=== PATIENT | male | born 1940 | race Caucasian/White ===

== ENCOUNTER → 2018-03-05 11:43 | Outpatient (CLI) | payer MEDICARE, OTHER, SELFPAY ==
--- NOTE | 2018-03-05 | DI.CT.S_ITS ---
PROCEDURE: CT CERVICAL SPINE WO CON INDICATIONS: CERVICAL SPINE PAIN TECHNIQUE: Noncontrast 3 mm thick sections acquired from the skull base to the T4 level. Sagittal and coronal reformats were then constructed. For radiation dose reduction, the following was used: automated exposure control, adjustment of mA and/or kV according to patient size. COMPARISON: [facility] [place], CR, SPINE CERVICAL MIN 4VW, 12/25/2016, 9:51. [facility], CR, XR CERVICAL SPINE 2 OR 3 VIEWS, 03/03/2018, 9:21. [facility], CR, CHEST 1 VIEW, 10/23/2016, 12:14. FINDINGS: Image quality: Excellent. Bones: No fractures or dislocations. There is severe degenerative disc disease involving the cervical spine from C3-C7, with both anterior and posterior projecting osteophytes narrowing the spinal canal posteriorly, but without associated subluxation. 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 Visualized superior ribs are intact. Soft tissues: Prevertebral soft tissues are normal in thickness. No paravertebral hematomas. No apical pneumothoraces. IMPRESSION: The degenerative disc disease and facet osteoarthritis along the cervicals line is moderately severe to severe, and most pronounced from C3-4 through C6-7. Spinal and foraminal stenosis appears present and could be more accurately assessed if some form of intervention is anticipated by MR scanning without contrast. Dictated by: Peter Abernathy M.D. on 03/05/2018 at 18:01 Approved by: Peter Abernathy M.D. on 03/05/2018 at 18:03
== END ==
PROVIDERS: Family Provider Internal Medicine; PCP Internal Medicine; Visit Provider Orthopaedic Surgery
DX: M50.30 Other cervical disc degeneration, unspecified cervical region (principal); M47.812 Spondylosis without myelopathy or radiculopathy, cervical region; M99.71 Connective tissue and disc stenosis of intervertebral foramina of cervical region
CPT/HCPCS: 72125

== ENCOUNTER → 2018-06-23 15:05 | Outpatient (CLI) | payer MEDICARE, OTHER, SELFPAY ==
--- NOTE | 2018-06-23 | DI.US.S_ITS ---
PROCEDURE: US SCROTUM INDICATIONS: EPIDIDIMAL MASS TECHNIQUE: Real-time scanning was performed of the scrotum and testicles, with image documentation. Color and pulse Doppler interrogation was performed of both testicles. COMPARISON: None. FINDINGS: Right: Testicle is normal in size at 3.9 x 2.1 x 2.5 cm. 7 x 4 x 6 mm cyst is seen in right tunica. Prominent right rete testes is seen. There is subtle hypoechoic area within right testes and measures 3 x 2 x 3 mm in size. No internal vascularity is seen. Epididymis is normal in overall size and show normal internal vascularity. 6 x 6 x 7 mm echogenic structure is noted in tail of right epididymis with no internal vascularity. Moderate right-sided hydrocele is seen. No varicoceles. Overlying scrotal skin is normal in thickness. Left: Testicle is normal in size at 4.3 x 2.2 x 2.8 cm, and homogeneous in echotexture. Epididymis is normal in overall size and morphology. No hydrocele or varicoceles. Overlying scrotal skin is normal in thickness. Doppler: Color and pulse Doppler demonstrate normal and symmetric arterial flow in both testicles. IMPRESSION: 1. 3 x 2 x 3 mm hypoechoic intratesticular lesion in right testes with no internal vascularity. Sonographic followup is recommended. 2. 7 x 4 x 6 mm right tunica cyst. Prominent right rete testes. 3. Moderate amount of right hydrocele. 6 x 6 x 7 mm echogenic and solid-appearing lesion involving tail of right epididymis, which can also be followup with scrotal ultrasound. 4. Normal appearing left testes and left epididymis. Dictated by: Guillermo Zapata M.D. on 06/23/2018 at 16:16 Approved by: Guillermo Zapata M.D. on 06/23/2018 at 16:21
== END ==
PROVIDERS: Family Provider Internal Medicine; PCP Internal Medicine
DX: N50.9 Disorder of male genital organs, unspecified (principal); N44.1 Cyst of tunica albuginea testis; N43.3 Hydrocele, unspecified
CPT/HCPCS: 76870

== ENCOUNTER 2018-12-17 10:03 | Day surgery (SDC) | payer MEDICARE, OTHER, SELFPAY ==
--- NOTE | 2018-12-17 | PATH_ITS ---
[facility] Accession Number: [id number] . 01 Material submitted: . PART A: GASTRIC POLYP BIOPSY PART B: GE JUNCTION BIOPSY . 02 Diagnosis: A. Biopsy, Gastric Polyp: Benign fundic gland polyp, negative for atypia. . B. Biopsy, Gastroesophageal Junction: Squamocolumnar junctional mucosa, negative for specialized metaplasia of Lei's type esophagus. Chronic inflammation with reactive epithelial changes, but negative for dysplasia and malignancy. Negative for squamous intraepithelial eosinophils. [facility]/12/18/2018 . 02 Electronically signed: . Juarez Garland MD, Pathologist NPI- [id number] . 01 Gross description: . Received two formalin-filled containers both labeled with the patient's name. . A. In a container labeled gastric polyp,' the specimen consists of a 0.3 cm portion of tissue. Entirely submitted in cassette A. B. In a container labeled GE junction are two 0.2 to 0.3 cm portions of tissue. Entirely submitted in cassette B. ([facility]:[id number]) /[facility] . 02 Pathologist provided ICD-10: K31.7 . 02 CPT . 889445, 721037 Performed at: 01 [facility] [address], [place], [place] [id number] MD Pablito Malhotra MD Phone: [phone] Performed at: 02 [facility] [address] [place], [place] [id number] MD Vivian Cano MD Phone: [phone]
[2018-12-17 10:13] VITALS: BP 145/82; PULSE 67; RESP 16; TEMP 36.9; O2SAT 99; BMI 25.4
--- NOTE | 2018-12-17 10:30 | PM.HP.1 ---
History of Present Illness Date Patient Seen: 12/17/18 Chief complaint: [id number] Narrative: 78-year-old male who was seen in our office on November 18, [address] Perez for abnormal findings on a CT scan performed in September of 2018. Please refer to that office note for further details. The patient had esophageal thickening and was given a month's course of pantoprazole. He currently denies any dysphagia. Patient History Medical History Asthma (Acute) Atrial fibrillation (Acute) Chronic cough (Acute) Hypertension (Acute) Surgical History History of appendectomy (Acute) History of cataract surgery (Acute) History of colonoscopy (Acute) History of hemorrhoidectomy (Acute) History of partial knee replacement (Acute) History of tonsillectomy (Acute) Social History household members: spouse Family & Social History Social History: household members spouse Meds Home Medications Medication Instructions Recorded Confirmed Type ASPIRIN (Aspir-Low) 81 mg PO Q DAY #0 07/31/11 12/17/18 History Metoprolol Succinate (#TOPROL XL) 50 mg PO Q DAY #0 07/31/11 History MULTIVITAMIN (One Daily 1 tab PO QDAY #0 08/01/11 History Multivitamin) [Vitamin C] 1,000 mg PO BID #0 08/01/11 12/17/18 History [Vitamin D] 1,000 mg PO BID #0 03/21/13 12/17/18 History amlodipine [Norvasc] 10 mg PO QDAY #0 03/21/13 12/17/18 History fexofenadine 180 mg PO DAILY #0 03/21/13 12/17/18 History lorazepam [Ativan] 0.5 mg PO HSP PRN #0 03/21/13 History amoxicillin 2,000 mg PO PRN 12/16/18 History lisinopril 40 mg PO DAILY 12/16/18 12/17/18 History Qvar RediHaler 1 puff INHALATION DAILY PRN 12/17/18 12/17/18 History hydroxyzine HCl 25 mg PO DAILY 12/17/18 12/17/18 History melatonin 5 mg PO BEDTIME PRN 12/17/18 12/17/18 History multivitamin 1 tab PO DAILY 12/17/18 12/17/18 History Allergies Allergy/AdvReac Type Severity Reaction Status Date / Time formoterol [FORMOTEROL] Allergy Intermediate patient Unverified 01/22/18 12:13 states it gave him a-fib Kmafqli-Unl-Vpa Reductase Allergy Unknown Verified 12/16/18 14:28 Inhibitor budesonide [BUDESONIDE] AdvReac Intermediate patient Unverified 01/22/18 12:13 states it gave him a-fib Exam Vital Signs (past 8 hours): - 12/17/18 10:13 Temperature 98.4 F Pulse Rate 67 Respiratory Rate 16 Blood Pressure 145/82 H Pulse Oximetry 99 Oxygen Delivery Method Room Air Narrative Exam Narrative: General: Patient is well developed, not in apparent distress Cardiovascular: Regular rate and rhythm, no murmurs, rubs, or gallops; no evidence of edema; no palpable abdominal aortic aneurysm Gastrointestinal: Normoactive bowel sounds, soft, nontender, nondistended, no rebound tenderness, no hepatosplenomegaly, no evidence of hernia Assessment & Plan Assessment & Plan narrative: 78-year-old male with findings of esophageal thickening on the CT scan performed in September 2018 who is here for an upper endoscopy for further evaluation. Regarding the procedure(s), the risks and potential complications, benefits, and alternatives (including not doing the procedure) were discussed with the patient. The risks include but are not limited to bleeding, splenic injury, infection, perforation which may require surgical intervention, missed lesions, and adverse reactions to sedative medicines. After a question and answer period, the patient agreed to proceed with the procedure(s) and gives informed consent.
--- NOTE | 2018-12-17 10:32 | PM.OP.ENDO ---
Operative Date/Time/Diagnoses Date of procedure: 12/17/18 Procedure Notes Procedure in detail: Surgeon: Jai Villegas MD Procedure: Esophagogastroduodenoscopy with biopsy Preoperative diagnosis: Esophageal thickening on CT Postoperative diagnosis: Gastric polyps status post wireless sales representative biopsy, LA grade C reflux esophagitis status post biopsy, small hiatal hernia Medications: Conscious sedation using 5 mg IV of Midazolam and 100 mcg IV of Fentanyl Preanesthesia Assessment An H and P was performed/updated and the Px?s ASA class is 2. The procedure was discussed in detail with the patient. The potential risks and complications including infection, bleeding, missed lesions, perforation, need for surgery in case of perforation, prolonged hospital stay, and were explained. A brief question and answer period was allotted and once all questions were answered, informed consent was obtained. The patient was brought back to the procedure room and placed on standard monitoring. The patient?s vital signs were monitored continuously throughout the entire procedure. Prior to starting, a timeout was performed to confirm the patient?s identity, allergies, medications, and procedure. Procedure in detail The patient was placed in left lateral decubitus position and a bite block was inserted. The tip of the upper endoscope was placed into the mouth and advanced without difficulty under direct visualization into the esophagus. Esophagus: There is evidence of LA grade C esophagitis in the distal 3rd of the esophagus likely due to reflux. Biopsies were taken. Stomach: There is note of a small hiatal hernia. There is note of multiple sessile and semi pedunculated polyps measuring 4-8 mm. Falsework Builder biopsies were taken from the largest polyp. Duodenum: The visualized mucosa was normal up to the 2nd portion The patient tolerated the procedure well and will be brought back to the recovery area to be discharged once criteria are met. The total physician intraservice time was 10 min. Complications There were no complications and estimated blood loss was minimal. Recommendations: Resume previous diet Continue outPx medications Use omeprazole 20 mg twice daily, 30 min prior to breakfast and 30 min prior to dinner (prescription sent to [facility] in [place]) Follow up pathology results Repeat EGD in 12 weeks to assess healing of the inflammation Office follow up if you have persistent symptoms of reflux An emergency contact number was given to the patient for any complications related to the procedure
[2018-12-17] MEDS: MIDAZOLAM 5 MG/5 ML VIAL IV (10:44)
[2018-12-17] MEDS: fentaNYL 250 MCG/5 ML INJ IV (10:45)
[2018-12-17 10:46] VITALS: BP 112/62; PULSE 61; RESP 18; O2SAT 95
--- NOTE | 2018-12-17 10:49 | PM.DS.1 ---
History of Present Illness Chief complaint: [id number] Narrative: 78-year-old male who was seen in our office on November 18, [address] Perez for abnormal findings on a CT scan performed in September of 2018. Please refer to that office note for further details. The patient had esophageal thickening and was given a month's course of pantoprazole. He currently denies any dysphagia. Discharge Providers Discharge Date: 12/17/18 Primary care physician: Dandy Palumbo MD Discharge provider: Jai Villegas MD Exam Vital Signs (past 8 hours): - 12/17/18 10:13 Temperature 98.4 F Pulse Rate 67 Respiratory Rate 16 Blood Pressure 145/82 H Pulse Oximetry 99 Oxygen Delivery Method Room Air Narrative Exam Narrative: General: Patient is well developed, not in apparent distress Cardiovascular: Regular rate and rhythm, no murmurs, rubs, or gallops; no evidence of edema; no palpable abdominal aortic aneurysm Gastrointestinal: Normoactive bowel sounds, soft, nontender, nondistended, no rebound tenderness, no hepatosplenomegaly, no evidence of hernia Discharge Plan Discharge Plan Patient Disposition: Home Discharge Med Rec/Prescriptions Prescriptions: Continued ASPIRIN (Aspir-Low) 81 mg PO Q DAY Qty: 0 RF: 0 Metoprolol Succinate (#TOPROL XL) 50 mg PO Q DAY Qty: 0 RF: 0 [Vitamin C] 1,000 mg PO BID Qty: 0 RF: 0 MULTIVITAMIN (One Daily Multivitamin) 1 tab PO QDAY Qty: 0 RF: 0 [Vitamin D] 1,000 mg PO BID Qty: 0 RF: 0 fexofenadine 180 MG tablet 180 mg PO DAILY Qty: 0 RF: 0 amlodipine [Norvasc] 5 MG tablet 10 mg PO QDAY Qty: 0 RF: 0 lorazepam [Ativan] 0.5 MG tablet 0.5 mg PO HSP PRN (Reason: Insomnia) Qty: 0 RF: 0 amoxicillin 2,000 mg PO PRN (Reason: Dental Procedure) RF: 0 lisinopril 40 mg PO DAILY RF: 0 Qvar RediHaler 1 puff Inhalation DAILY PRN (Reason: Dyspnea) RF: 0 hydroxyzine HCl 25 mg PO DAILY RF: 0 melatonin 5 mg PO BEDTIME PRN (Reason: Insomnia) RF: 0 multivitamin 1 tab PO DAILY RF: 0 Follow up/Referrals: Dandy Palumbo MD [Primary Care Provider] - Discharge Orders: Discharge (Order); Ordered 12/17/18 Ordered By: Jai Villegas Provider Discharge Instructions Diet: Diet as Tolerated Visit Report/Discharge Packet Stand Alone Forms: EGD Result: Medical Group Discharge Data Primary Care Provider: Dandy Palumbo V Attending Provider: Jai Villegas
[2018-12-17 10:51] VITALS: BP 117/63; PULSE 56; RESP 12; O2SAT 96
[2018-12-17 11:12] VITALS: BP 110/62; PULSE 54; RESP 16; TEMP 36.6; O2SAT 97
== END 2018-12-17 11:16 | disposition home or self-care (01) ==
PROVIDERS: PCP Internal Medicine; Visit Provider Internal Medicine Gastroenterology
PROC: 0DJ08ZZ Inspection of Upper Intestinal Tract, Via Natural or Artificial Opening Endoscopic (ICD-10-PCS; CPT 43235; principal; 2018-12-17 11:00)
DX: K21.0 Gastro-esophageal reflux disease with esophagitis (principal); K31.7 Polyp of stomach and duodenum; K44.9 Diaphragmatic hernia without obstruction or gangrene; I10 Essential (primary) hypertension; J45.909 Unspecified asthma, uncomplicated; R05 Cough; I48.91 Unspecified atrial fibrillation
CPT/HCPCS: 43239; 88305; J2250; J3010

== ENCOUNTER 2019-03-18 07:36 | Day surgery (SDC) | payer MEDICARE, OTHER, SELFPAY ==
--- NOTE | 2019-03-18 | PATH_ITS ---
[facility] Accession Number: [id number] . 01 Material submitted: . esophagus, E-G Junction - GE JUNCTION BIOPSY . 01 Clinical history: . RULE OUT CHAUHAN'S ESOPHAGUS . 02 Diagnosis: Gastroesophageal Junction, Biopsy: Squamocolumnar junction mucosa with no diagnostic abnormality. Negative for intestinal metaplasia by alcian blue stain. Negative for dysplasia and malignancy. [facility]/03/20/2019 . 02 Electronically signed: . Vivian Cano MD, Pathologist NPI- [id number] . 01 Gross description: . GE JUNCTION BIOPSY: Received in formalin is 1 fragment(s) of bolaños, soft tissue measuring 0.2 x 0.2 x 0.1 cm which is entirely submitted and submitted entirely in 1 cassette(s) /[facility] /[facility] . 02 Microscopic: . An alcian blue was performed to evaluate for intestinal metaplasia, and is negative. The control stain showed appropriate reactivity. . 02 Pathologist provided ICD-10: R13.10 . 02 CPT . 170879, 753612 Performed at: 01 [facility] [address], [place], [place] [id number] MD Pablito Malhotra MD Phone: [phone] Performed at: 02 [facility] [place] [address] [place], [place] [id number] MD Vivian Cano MD Phone: [phone]
--- NOTE | 2019-03-18 07:57 | PM.HP.1 ---
History of Present Illness Date Patient Seen: 03/18/19 Chief complaint: [id number] Narrative: 79-year-old male last seen in our office 01/07/2019 in follow-up for LA grade C esophagitis who is now taking omeprazole twice daily. He is back today for reassessment of his esophagitis. No new changes in his history. The patient has had no significant heartburn or abdominal discomfort. Patient History Medical History (Updated 12/16/18 @ 14:27 by Jennie Ko RN) Asthma (Acute) Atrial fibrillation (Acute) Chronic cough (Acute) Hypertension (Acute) Surgical History (Updated 12/17/18 @ 10:16 by Jennie Ko RN) History of appendectomy (Acute) History of cataract surgery (Acute) History of colonoscopy (Acute) History of hemorrhoidectomy (Acute) History of partial knee replacement (Acute) History of tonsillectomy (Acute) Social History household members: spouse Family & Social History Social History: household members spouse Meds Home Medications Medication Instructions Recorded Confirmed Type ASPIRIN (Aspir-Low) 81 mg PO Q DAY #0 07/31/11 12/17/18 History Metoprolol Succinate (#TOPROL XL) 50 mg PO Q DAY #0 07/31/11 History [Vitamin C] 1,000 mg PO BID #0 08/01/11 12/17/18 History [Vitamin D] 1,000 mg PO BID #0 03/21/13 12/17/18 History amlodipine [Norvasc] 10 mg PO QDAY #0 03/21/13 12/17/18 History fexofenadine 180 mg PO DAILY #0 03/21/13 12/17/18 History lorazepam [Ativan] 0.5 mg PO HSP PRN #0 03/21/13 History amoxicillin 2,000 mg PO PRN 12/16/18 History lisinopril 40 mg PO DAILY 12/16/18 12/17/18 History Qvar RediHaler 1 puff INHALATION DAILY PRN 12/17/18 12/17/18 History hydroxyzine HCl 25 mg PO DAILY 12/17/18 12/17/18 History melatonin 5 mg PO BEDTIME PRN 12/17/18 12/17/18 History multivitamin 1 tab PO DAILY 12/17/18 12/17/18 History omeprazole 20 mg PO BID 03/18/19 03/18/19 History Allergies Allergy/AdvReac Type Severity Reaction Status Date / Time formoterol [FORMOTEROL] Allergy Intermediate patient Verified 03/18/19 07:56 states it gave him a-fib budesonide [BUDESONIDE] AdvReac Intermediate patient Verified 03/18/19 07:56 states it gave him a-fib pseudoephedrine AdvReac Unknown gave pt Verified 03/18/19 07:56 [From Sudafed] afib Qjzdibh-Kta-Fzt Reductase AdvReac Unknown muscle Verified 03/18/19 07:56 Inhibitor pains Review of Systems Review of Systems All systems reviewed & are unremarkable except as noted in HPI and below Exam Narrative Exam Narrative: General: Patient is well developed, not in apparent distress Cardiovascular: Regular rate and rhythm, no murmurs, rubs, or gallops; no evidence of edema; no palpable abdominal aortic aneurysm Gastrointestinal: Normoactive bowel sounds, soft, nontender, nondistended, no rebound tenderness, no hepatosplenomegaly, no evidence of hernia Assessment & Plan Assessment & Plan narrative: 79-year-old male with history of abnormal CT showing distal esophageal thickening status post EGD December 17, 2018 revealing LA grade C reflux esophagitis who is here for reassessment after being on omeprazole since that time. Regarding the procedure(s), the risks and potential complications, benefits, and alternatives (including not doing the procedure) were discussed with the patient. The risks include but are not limited to bleeding, splenic injury, infection, perforation which may require surgical intervention, missed lesions, and adverse reactions to sedative medicines. After a question and answer period, the patient agreed to proceed with the procedure(s) and gives informed consent.
[2019-03-18 08:03] VITALS: BP 136/72; PULSE 59; RESP 15; TEMP 36.4; O2SAT 99; BMI 24.0
[2019-03-18] MEDS: SODIUM CHLORIDE 0.9% 1,000 ML 70 ML IV (08:17)
[2019-03-18] MEDS: MIDAZOLAM 5 MG/5 ML VIAL IV (08:30)
[2019-03-18] MEDS: fentaNYL 250 MCG/5 ML INJ IV (08:30)
--- NOTE | 2019-03-18 08:30 | PM.OP.ENDO ---
Operative Date/Time/Diagnoses Date of procedure: 03/18/19 Procedure Notes Procedure in detail: Surgeon: Jai Villegas MD Procedure: Esophagogastroduodenoscopy with biopsy Preoperative diagnosis: Reflux esophagitis on EGD December 2018 Postoperative diagnosis: Irregular Z-line rule out Lei's, small hiatal hernia, fundic gland polyps Medications: Conscious sedation using 4 mg IV of Midazolam and 100 mcg IV of Fentanyl Preanesthesia Assessment An H and P was performed/updated and the Px?s ASA class is 2. The procedure was discussed in detail with the patient. The potential risks and complications including infection, bleeding, missed lesions, perforation, need for surgery in case of perforation, prolonged hospital stay, and were explained. A brief question and answer period was allotted and once all questions were answered, informed consent was obtained. The patient was brought back to the procedure room and placed on standard monitoring. The patient?s vital signs were monitored continuously throughout the entire procedure. Prior to starting, a timeout was performed to confirm the patient?s identity, allergies, medications, and procedure. Procedure in detail The patient was placed in left lateral decubitus position and a bite block was inserted. The tip of the upper endoscope was placed into the mouth and advanced without difficulty under direct visualization into the esophagus. Esophagus: There was no evidence of esophagitis. There was note of an irregular Z-line at 40 cm with 1 salmon-colored tongue. Biopsies were performed to rule out Lei's esophagus Stomach: There is note of a small hiatal hernia. There is note of multiple sessile and semi pedunculated polyps measuring 4-8 mm. International Editorial Producer biopsies were taken on his prior EGD showing fundic gland polyps Duodenum: The visualized mucosa was normal up to the 2nd portion The patient tolerated the procedure well and will be brought back to the recovery area to be discharged once criteria are met. The total physician intraservice time was 10 minutes. Complications There were no complications and estimated blood loss was minimal. Recommendations: Resume previous diet Anti-reflux measures Continue outPx medications Follow up pathology results Wean omeprazole to once a day dosing for the next week then to tavmu-lguwa-lil dosing for the next week then wean as tolerated to as needed use Office follow up as needed An emergency contact number was given to the patient for any complications related to the procedure
[2019-03-18] MEDS: TETRACAINE/BENZOCAINE/BUTAMBEN (CETACAINE) BOTTLE 1 SPRAY TOP (08:31)
[2019-03-18 08:40] VITALS: BP 115/85; PULSE 57; RESP 11; TEMP 36.4; O2SAT 95
[2019-03-18 08:45] VITALS: BP 117/75; PULSE 60; RESP 11; O2SAT 95
[2019-03-18 08:50] VITALS: BP 125/70; PULSE 61; RESP 11; TEMP 36.3; O2SAT 96
[2019-03-18 08:56] VITALS: BP 117/74; PULSE 55; RESP 15; TEMP 36.6; O2SAT 96
== END 2019-03-18 09:07 | disposition home or self-care (01) ==
PROVIDERS: PCP Internal Medicine; Visit Provider Internal Medicine Gastroenterology
PROC: 0DJ08ZZ Inspection of Upper Intestinal Tract, Via Natural or Artificial Opening Endoscopic (ICD-10-PCS; CPT 43235; principal; 2019-03-18 08:30)
DX: K31.7 Polyp of stomach and duodenum (principal); K44.9 Diaphragmatic hernia without obstruction or gangrene; J45.909 Unspecified asthma, uncomplicated; I48.91 Unspecified atrial fibrillation; I10 Essential (primary) hypertension; R05 Cough
CPT/HCPCS: 43239; 88305; 88313; J2250; J3010

== ENCOUNTER → 2019-06-03 11:23 | Outpatient (CLI) | payer MEDICARE, OTHER, SELFPAY ==
[2019-06-03 12:31] LABS: Blood Urea Nitrogen 18 mg/dL (9-20); Calcium 9.8 mg/dL (8.4-10.2); Carbon Dioxide 29 mmol/L (22-32); Chloride 105 mmol/L (98-107); Estimated Glomerular Filt Rate > 60.0 mL/min (>60); Glucose 80 mg/dL (80-110); HEMOLYSIS < 15 (0-50); Potassium 3.8 mmol/L (3.4-5.1); Sodium 141 mmol/L (137-145)
[2019-06-03 12:59] LABS: Prostate Specific Antigen 3.27 ng/mL (0.10-4.00)
== END ==
PROVIDERS: PCP Internal Medicine; Visit Provider Internal Medicine
DX: I10 Essential (primary) hypertension (principal); N40.1 Benign prostatic hyperplasia with lower urinary tract symptoms
CPT/HCPCS: 36415; 80048; 84153

== ENCOUNTER → 2019-09-23 18:35 | Outpatient (ROUT) | payer MEDICARE, OTHER, SELFPAY ==
[2019-09-23 18:55] LABS: Add Manual Diff / Slide Review NO; Basophils Absolute Auto 100 /uL (0-100); Eosinophils Absolute Auto 0 /uL (0-450); Eosinophils Percent Auto 0.4 % (2-4); Hematocrit 40.6 % (41-53); Hemoglobin 13.8 g/dL (13.5-17.5); Lymphocytes Absolute Auto 1700 /uL (1100-4500); Lymphocytes Percent Auto 18.9 % (25-40); Mean Corpuscular Hemoglobin 31.4 PG (26-34); Mean Corpuscular Volume 92.5 fL (80-100); Monocytes Absolute Auto 500 /uL (0-900); Monocytes Percent Auto 6.1 % (3-14); Neutrophils Absolute Auto 6500 /uL (1500-7000); Neutrophils Percent Auto 73.6 % (50-75); Platelet Count 274 X10^3/uL (150-400); Red Blood Cell Count 4.39 X10^6/uL (4.5-5.9); Red Cell Distribution Width 14.1 % (11.6-14.8); White Blood Cell Count 8.8 X10^3/uL (4.5-11.0)
[2019-09-23 19:05] LABS: Alanine Aminotransferase 23 IU/L (<50); Albumin 4.4 g/dL (3.5-5.0); Albumin Globulin Ratio 1.8 (1.0-2.8); Alkaline Phosphatase 86 U/L (38-126); Aspartate Aminotransferase 35 IU/L (17-59); Bilirubin Total 0.5 mg/dL (0.2-1.3); Blood Urea Nitrogen 18 mg/dL (9-20); C-Reactive Protein Quant 0.5 mg/dL (<1.0); Calcium 10.2 mg/dL (8.4-10.2); Carbon Dioxide 26 mmol/L (22-32); Chloride 104 mmol/L (98-107); Estimated Glomerular Filt Rate > 60.0 mL/min (>60); Globulin 2.4 g/dL (1.7-4.1); Glucose 81 mg/dL (80-110); HEMOLYSIS < 15 (0-50); Potassium 4.2 mmol/L (3.4-5.1); Sodium 141 mmol/L (137-145); Total Protein 6.8 g/dL (6.3-8.2)
[2019-09-23 19:18] LABS: Erythrocyte Sedimentation Rate 16 MM/HR (0-15)
[2019-09-23 19:32] LABS: TSH w/ Reflex to FT4 1.77 uIU/mL (0.47-4.68)
== END ==
PROVIDERS: PCP Internal Medicine; Visit Provider Internal Medicine
DX: R53.81 Other malaise (principal)
CPT/HCPCS: 80053; 84443; 85025; 85651; 86140

== ENCOUNTER → 2019-10-23 11:29 | Outpatient (CLI) | payer MEDICARE, OTHER, SELFPAY ==
[2019-10-26 21:48] LABS: 18 kD IgG Band Nonreactive; 23 kD IgG Band Nonreactive; 28 kD IgG Band Nonreactive; 30 kD IgG Band Nonreactive; 39 kD IgG Band Nonreactive; 41 kD IgG Bands Reactive; 45 kD IgG Band Nonreactive; 58 kD IgG Band Nonreactive; 66 kD IgG Band Reactive; 93 kD IgG Bands Nonreactive
== END ==
PROVIDERS: PCP Internal Medicine; Visit Provider Internal Medicine
DX: R53.81 Other malaise (principal)
CPT/HCPCS: 36415; 86617

== ENCOUNTER 2020-04-06 21:09 | Emergency (ER) | payer MEDICARE, OTHER, SELFPAY ==
[2020-04-06 21:15] VITALS: BP 155/70; PULSE 87; RESP 20; TEMP 36.8; O2SAT 99
--- NOTE | 2020-04-06 21:20 | DI.RAD.S_ITS ---
PROCEDURE: XR CHEST 2V INDICATIONS: poss fb/aspiration TECHNIQUE: 2 views of the chest were acquired. COMPARISON: [facility], , CHEST 1 VIEW, 10/23/2016, 12:14. FINDINGS: Surgical changes and devices: None. Lungs and pleura: Lungs are clear. No pleural effusions or pneumothorax. Mediastinum: Mediastinal contours are normal. Heart size is normal. Bones and chest wall: No suspicious bony abnormalities. Soft tissues appear unremarkable. IMPRESSION: No evidence acute pulmonary process. Dictated by: Froylan Rodriguez M.D. on 04/06/2020 at 21:53 Approved by: Froylan Rodriguez M.D. on 04/06/2020 at 21:53
--- NOTE | 2020-04-06 22:05 | ED.GENADULT ---
HPI - General Adult General Chief complaint: Shortness of Breath/Dyspnea Stated complaint: thinks inhaled a vitamin pill, choking sensation Time Seen by Provider: 04/06/20 21:53 Source: patient Mode of arrival: Ambulatory Limitations: no limitations History of Present Illness HPI narrative: 80-year-old male here for evaluation after he states that he was trying to swallow a multi vitamin pill and ?aspirated ?it he states that for a short time afterwards he was having some shortness of breath and coughing however that seems to have subsided. He does have a history of asthma. He states that he feels like he is ?rattling? whenever he exhales. Related Data Home Medications Medication Instructions Recorded Confirmed aspirin 81 mg PO DAILY #0 07/31/11 03/18/19 metoprolol succinate 50 mg PO DAILY #0 07/31/11 03/18/19 [Vitamin C] 1,000 mg PO BID #0 08/01/11 12/17/18 [Vitamin D] 1,000 mg PO BID #0 03/21/13 12/17/18 amlodipine [Norvasc] 10 mg PO QDAY #0 03/21/13 03/18/19 fexofenadine 180 mg PO DAILY PRN #0 03/21/13 03/18/19 lorazepam [Ativan] 0.5 mg PO HSP PRN #0 03/21/13 03/18/19 amoxicillin 500 mg PO QID PRN #0 12/16/18 03/18/19 lisinopril 40 mg PO DAILY #0 12/16/18 03/18/19 Qvar RediHaler 2 puff INHALATION BID PRN #0 12/17/18 03/18/19 hydroxyzine HCl 25 mg PO TID-QID PRN #0 12/17/18 03/18/19 melatonin 5 mg PO BEDTIME PRN #0 12/17/18 03/18/19 multivitamin 1 tab PO DAILY #0 12/17/18 03/18/19 omeprazole 20 mg PO BID 03/18/19 03/18/19 Allergies Allergy/AdvReac Type Severity Reaction Status Date / Time formoterol [FORMOTEROL] Allergy Intermediate patient Verified 03/18/19 07:56 states it gave him a-fib budesonide [BUDESONIDE] AdvReac Intermediate patient Verified 03/18/19 07:56 states it gave him a-fib pseudoephedrine AdvReac Unknown gave pt Verified 03/18/19 07:56 [From [facility]] afib [id number]-[id number] Reductase AdvReac Unknown muscle Verified 03/18/19 07:56 Inhibitor pains Review of Systems Constitutional Constitutional: Denies fever(s) and Denies headache(s) ENT Ears, Nose, Mouth, and Throat: Denies headache(s) Cardiovascular Cardiovascular: Denies chest pain and Denies dyspnea Respiratory Respiratory: Reports cough and Denies dyspnea Gastrointestinal Gastrointestinal: Denies abdominal pain, Denies change in bowel habits and Denies vomiting Integumentary/Breasts Skin/Breast: Denies rash Neurologic Neurologic: Denies behavioral changes and Denies headache(s) Psychiatric Psychiatric: Denies behavioral changes Hematologic/Lymphatic Hematologic/Lymphatic: Denies easy bleeding and Denies easy bruising Patient History Medical History Asthma (Acute) Atrial fibrillation (Acute) Chronic cough (Acute) Hypertension (Acute) Surgical History (Updated 12/17/18 @ 10:16 by Jennie Ko RN) History of appendectomy (Acute) History of cataract surgery (Acute) History of colonoscopy (Acute) History of hemorrhoidectomy (Acute) History of partial knee replacement (Acute) History of tonsillectomy (Acute) Social History household members: spouse Exam Initial Vital Signs Initial Vital Signs: Vital Signs Temperature 98.3 F 04/06/20 21:15 Pulse Rate 87 04/06/20 21:15 Respiratory Rate 20 04/06/20 21:15 Blood Pressure 155/70 H 04/06/20 21:15 Pulse Oximetry 99 04/06/20 21:15 Const General: cooperative, comfortable and well developed Limitations: mental status not altered HENMT Head: normal to inspection and normocephalic Resp Effort & Inspection: normal respiratory effort, no cough, no grunting, not labored, no retractions and not tachypneic Auscultation: rhonchi Cardio Rate: regular rate Rhythm: regular rhythm Skin Lesions: no lesions Rashes: no rashes Extrem General: capillary refill normal Course Orders Ordered: ED Orders 04/06/20 21:20 XR chest 2V Stat 04/06/20 22:06 CT chest w con Stat 04/06/20 22:18 Basic Metabolic Panel Stat Complete Blood Count AUTO DIFF Stat Discontinued Medications Albuterol (Ventolin Hfa Prepack) 1 box MISC SEEINSTR ONE Stop: 04/06/20 23:41 Last Admin: 04/06/20 23:49 Dose: 1 box Documented by: CHRISTOPHE Vital Signs Vital signs: Vital Signs - 8 hr 04/06/20 21:15 04/06/20 23:44 Temperature 98.3 F Pulse Rate 87 80 Respiratory Rate 20 18 Blood Pressure 155/70 H Blood Pressure [Right Arm] 142/70 H Pulse Oximetry 99 98 Medical Decision Making Lab Data Lab results reviewed: Yes I reviewed the patient's lab results. Result diagrams: 04/06/20 22:18 04/06/20 22:18 Labs: Lab Results 04/06/20 04/06/20 Range/Units 22:18 22:18 WBC 9.0 (4.5-11.0) X10^3/uL RBC 4.60 (4.5-5.9) X10^6/uL Hgb 14.9 (13.5-17.5) g/dL Hct 43.2 (41-53) % MCV 93.8 (80-100) fL MCH 32.3 (26-34) PG MCHC 34.4 (30-36) % RDW 13.9 (11.6-14.8) % Plt Count 184 (150-400) X10^3/uL Neut % (Auto) 67.1 (50-75) % Lymph % (Auto) 20.2 L (25-40) % Woodward % (Auto) 9.5 (3-14) % Eos % (Auto) 2.0 (2-4) % Baso % (Auto) 1.2 (0-2) % Neut # (Auto) 6000 (8462-7190) /uL Lymph # (Auto) 1800 (2149-0065) /uL Woodward # (Auto) 900 (0-900) /uL Eos # (Auto) 200 (0-450) /uL Baso # (Auto) 100 (0-100) /uL Sodium 141 (137-145) mmol/L Potassium 3.9 (3.4-5.1) mmol/L Chloride 107 (98-107) mmol/L Carbon Dioxide 23 (22-32) mmol/L BUN 23 H (9-20) mg/dL Creatinine 0.97 (0.66-1.25) mg/dL Estimated GFR > 60.0 (>60) mL/min BUN/Creatinine Ratio 23.7 H (6-22) Glucose 95 (80-110) mg/dL Calcium 10.2 (8.4-10.2) mg/dL Imaging Data Chest x-ray: Radiologist's Impression: [address] [address] XRay Report Signed Patient: Omar Rocha EMR#: [id number] : 2Acct:[id number] Age/Sex: 80 / MDate of Service: 04/06/20 Loc: ED Accession Number: [id number] Procedure: XR chest 2V Ordering Provider: Barry Medrano D.O. PROCEDURE: XR CHEST 2V INDICATIONS: poss fb/aspiration TECHNIQUE: 2 views of the chest were acquired. COMPARISON: [facility], CHEST 1 VIEW, 10/23/2016, 12:14. FINDINGS: Surgical changes and devices: None. Lungs and pleura: Lungs are clear. No pleural effusions or pneumothorax. Mediastinum: Mediastinal contours are normal. Heart size is normal. Bones and chest wall: No suspicious bony abnormalities. Soft tissues appear unremarkable. IMPRESSION: No evidence acute pulmonary process. Dictated by: Froylan Rodriguez M.D. on 04/06/2020 at 21:53 Approved by: Froylan Rodriguez M.D. on 04/06/2020 at 21:53 CT scan - chest: Radiologist's Impression: No evidence of acute disease negative for air trapping or foreign body within the airway MDM Narrative Medical decision making narrative: Patient's chest x-ray was unremarkable however he did have bilateral rhonchi. A CT scan was ordered to evaluate for any potential foreign body that would not be radiopaque however nothing was seen on the CT scan. There is no air trapping. No secondary signs of an aspirated foreign body. Patient states that he feels like his symptoms have improved. He is not in any respiratory distress. Given his history of asthma will send him home with an albuterol inhaler. He does have QVAR at home. We did discuss the situation. We did discuss potential for pneumonitis. We did discuss the potential for inflammatory state and potentially worsening of his asthma. I feel we can hold on antibiotics for now. No indication to admit him to the hospital currently. Patient was given strict return precautions. He expressed understanding and agreement. Discharge Plan Departure Patient Disposition: Home Clinical Impression: Cough Aspiration into airway Qualifiers: Encounter type: initial encounter Qualified Code(s): T17.908A - Unspecified foreign body in respiratory tract, part unspecified causing other injury, initial encounter Discharge Date/Time: 04/06/20 23:55 Activity Restrictions/Additional Instructions: I would recommend that you continue with the QVAR for the next couple days. Also use the albuterol inhaler every 4 hours while your awake for the next 24-48 hours. Return to the emergency department for any chest pain, fevers, problems breathing, or any other new or worsening symptoms. Prescriptions: No Action aspirin 81 mg Tablet,Delayed Release (Dr/Ec) 81 mg PO DAILY Qty: 0 RF: 0 metoprolol succinate 50 mg Tablet Extended Release 24 Hr 50 mg PO DAILY Qty: 0 RF: 0 [Vitamin C] 1,000 mg PO BID Qty: 0 RF: 0 [Vitamin D] 1,000 mg PO BID Qty: 0 RF: 0 fexofenadine 180 MG tablet 180 mg PO DAILY PRN (Reason: Allergic Symptoms) Qty: 0 RF: 0 amlodipine [Norvasc] 5 MG tablet 10 mg PO QDAY Qty: 0 RF: 0 lorazepam [Ativan] 0.5 MG tablet 0.5 mg PO HSP PRN (Reason: Insomnia) Qty: 0 RF: 0 amoxicillin 500 mg Capsule 500 mg PO QID PRN (Reason: dental procedure) Qty: 0 RF: 0 lisinopril 40 mg Tablet 40 mg PO DAILY Qty: 0 RF: 0 multivitamin Tablet 1 tab PO DAILY Qty: 0 RF: 0 hydroxyzine HCl 25 mg Tablet 25 mg PO TID-QID PRN (Reason: abd discomfort) Qty: 0 RF: 0 melatonin 5 mg Tablet 5 mg PO BEDTIME PRN (Reason: Insomnia) Qty: 0 RF: 0 Qvar RediHaler 40 mcg/actuation Hfa Aerosol Breath Activated 2 puff INHALATION BID PRN (Reason: Dyspnea) Qty: 0 RF: 0 omeprazole 20 mg Tablet,Delayed Release (Dr/Ec) 20 mg PO BID RF: 0 Referrals: Dandy Palumbo MD [Primary Care Provider] -
--- NOTE | 2020-04-06 22:06 | DI.CT.S_ITS ---
PROCEDURE: CT CHEST W CON INDICATIONS: Eval for potential aspirated pill TECHNIQUE: After the administration of intravenous contrast, 5 mm thick sections acquired from the pulmonary apices to the posterior costophrenic angles. 1 mm axial lung, 5 mm thick coronal and sagittal reformats and 7 mm axial MIP were acquired. For radiation dose reduction, the following was used: automated exposure control, adjustment of mA and/or kV according to patient size. COMPARISON: [facility], CT, CT CERVICAL SPINE WO CON, 03/05/2018, 11:52. FINDINGS: Image quality: Excellent. Lungs and pleura: Unchanged left apical scarring and atelectasis. 2 mm nodule in the right apex also unchanged Airway thickening in keeping with nonspecific bronchitis and/or reactive airways disease. No pleural effusions or pneumothorax. Central and peripheral airways are patent and normal in caliber. Mediastinum: Heart size is normal. Coronary artery calcifications are present. No pericardial effusion. No mediastinal or hilar adenopathy by size criteria. Thoracic aorta and central pulmonary arteries are normal in size. Esophagus is normal in caliber. No hiatal hernia. Bones and chest wall: No suspicious bony lesions. No vertebral body compression fractures. No axillary or supraclavicular adenopathy by size criteria. Thyroid gland negative. Diffuse spondylosis. Hepatic steatosis. IMPRESSION: No acute consolidation. Scattered scarring/atelectasis. Additional chronic and incidental findings as above. Findings concordant with the preliminary study interpretation provided at the time of the exam. Dictated by: Naman Snyder M.D. on 04/07/2020 at 8:04 Approved by: Naman Snyder M.D. on 04/07/2020 at 8:12
[2020-04-06 22:26] LABS: Add Manual Diff / Slide Review NO; Basophils Absolute Auto 100 /uL (0-100); Basophils Percent Auto 1.2 % (0-2); Eosinophils Absolute Auto 200 /uL (0-450); Hematocrit 43.2 % (41-53); Hemoglobin 14.9 g/dL (13.5-17.5); Lymphocytes Absolute Auto 1800 /uL (1100-4500); Lymphocytes Percent Auto 20.2 % (25-40); Mean Corpuscular HGB Conc 34.4 % (30-36); Mean Corpuscular Hemoglobin 32.3 PG (26-34); Mean Corpuscular Volume 93.8 fL (80-100); Monocytes Absolute Auto 900 /uL (0-900); Monocytes Percent Auto 9.5 % (3-14); Neutrophils Absolute Auto 6000 /uL (1500-7000); Neutrophils Percent Auto 67.1 % (50-75); Platelet Count 184 X10^3/uL (150-400); Red Cell Distribution Width 13.9 % (11.6-14.8)
[2020-04-06 22:34] LABS: BUN Creatinine Ratio 23.7 (6-22); Blood Urea Nitrogen 23 mg/dL (9-20); Calcium 10.2 mg/dL (8.4-10.2); Carbon Dioxide 23 mmol/L (22-32); Chloride 107 mmol/L (98-107); Estimated Glomerular Filt Rate > 60.0 mL/min (>60); Glucose 95 mg/dL (80-110); HEMOLYSIS < 15 (0-50); Potassium 3.9 mmol/L (3.4-5.1); Sodium 141 mmol/L (137-145)
[2020-04-06 23:44] VITALS: BP 142/70; PULSE 80; RESP 18; O2SAT 98
[2020-04-06] MEDS: ALBUTEROL HFA PREPACK 1 BOX MISC (23:49)
== END 2020-04-06 23:55 | disposition home or self-care (01) ==
PROVIDERS: Emergency Provider Emergency Medicine; PCP Internal Medicine
DX: T17.908A Unspecified foreign body in respiratory tract, part unspecified causing other injury, initial encounter (principal); R05 Cough; R06.02 Shortness of breath
CPT/HCPCS: 36415; 71046; 71260; 80048; 85025; 99284; Q9967

== ENCOUNTER → 2020-07-27 18:57 | Outpatient (ROUT) | payer MEDICARE, OTHER, SELFPAY ==
[2020-07-27 19:45] LABS: Aspartate Aminotransferase 35 IU/L (17-59); BUN Creatinine Ratio 19.8 (6-22); Blood Urea Nitrogen 19 mg/dL (9-20); Calcium 9.6 mg/dL (8.4-10.2); Carbon Dioxide 27 mmol/L (22-32); Chloride 106 mmol/L (98-107); Cholesterol 240 mg/dL (140-199); Estimated Glomerular Filt Rate > 60.0 mL/min (>60); Glucose 86 mg/dL (80-110); HDL Cholesterol 48 mg/dL (40-60); HEMOLYSIS < 15 (0-50); LDL Cholesterol Calculated 164 mg/dL (<100); Sodium 140 mmol/L (137-145); Triglycerides 138 mg/dL (35-150)
[2020-07-27 20:13] LABS: Prostate Specific Antigen 4.37 ng/mL (0.10-4.00)
== END ==
PROVIDERS: PCP Internal Medicine; Visit Provider Internal Medicine
DX: N40.1 Benign prostatic hyperplasia with lower urinary tract symptoms (principal); E78.2 Mixed hyperlipidemia; I10 Essential (primary) hypertension
CPT/HCPCS: 80048; 80061; 84153; 84450

== ENCOUNTER → 2020-11-21 17:35 | Outpatient (CLI) | payer MEDICARE, OTHER, SELFPAY ==
--- NOTE | 2020-11-21 17:40 | DI.RAD.S_ITS ---
PROCEDURE: XR HIP W PEL IF DONE LT 2V INDICATIONS: HIP PAIN TECHNIQUE: AP pelvis with lateral view(s) of the left hip(s). COMPARISON: None. FINDINGS: Bones: No fractures or dislocations. Mild to moderate left hip joint osteoarthritic changes are seen. Moderate right hip joint osteoarthritis is also noted. No evidence of avascular necrosis of femoral head. Pelvic ring appears intact. No suspicious bony lesion. Degenerative disc disease in visualized lower lumbar spine is seen. Soft tissues: The visualized bowel gas pattern is normal. No suspicious soft tissue calcifications. IMPRESSION: Right worse than left bilateral hip joint osteoarthritis. No hip fracture or dislocation. No evidence of avascular necrosis. Degenerative disc disease in lower lumbar spine. Dictated by: Guillermo Zapata M.D. on 11/22/2020 at 8:40 Approved by: Guillermo Zapata M.D. on 11/22/2020 at 8:41
== END ==
PROVIDERS: PCP Internal Medicine; Referring Provider Internal Medicine; Visit Provider Internal Medicine
DX: M16.0 Bilateral primary osteoarthritis of hip (principal); M51.36 Other intervertebral disc degeneration, lumbar region
CPT/HCPCS: 73502

== ENCOUNTER → 2021-03-28 11:58 | Outpatient (CLI) | payer MEDICARE, SELFPAY ==
--- NOTE | 2021-03-28 12:02 | DI.MRI.S_ITS ---
PROCEDURE: MR LUMBAR SPINE WO CON INDICATIONS: Radiculopathy, lumbar region TECHNIQUE: Noncontrast sagittal T1 spin echo and T2 fast echo, sagittal STIR, axial T1 and T2 fast spin echo through the lumbar spine. In cases with scoliosis, additional coronal T2 fast spin echo may be performed. COMPARISON: [facility], CR, XR LUMBAR SPINE WITH OLBIQUES PLUS FLEXION EXTENSION, 03/16/2021, 10:58. FINDINGS: Image quality: Excellent. Alignment and Curvature: Trace degenerative retrolisthesis of L5 on S1. Trace degenerative anterolisthesis of L2 on L3. Bone Marrow: Marrow is of normal overall signal. No acute vertebral body compression fractures. Old mild to moderate L4 compression. Spinal Cord: Conus medullaris terminates at the L1 level. Visualized cord demonstrates normal signal and size. Paraspinous Soft Tissues: No paravertebral masses. T12-L1: Mild disc height loss. Diffuse disc bulge. Mild facet hypertrophy. No canal stenosis or foraminal stenosis. L1-L2: Disc bulge. Facet and ligament hypertrophy. No significant canal stenosis. Mild bilateral foraminal stenosis. L2-L3: Diffuse disc bulge. Facet and ligament hypertrophy. Moderate canal stenosis. Mild bilateral foraminal stenosis. L3-L4: Diffuse disc bulge. Facet and ligament hypertrophy. Moderate canal stenosis. [id number] right foraminal narrowing. Mild left foraminal narrowing. L4-L5: Mild disc bulge. Facet and ligament hypertrophy. Mild canal stenosis. Mild right foraminal narrowing. Moderate left foraminal narrowing with flattening deformity on the exiting left L4 nerve root. L5-S1: Severe disc height loss. Mild posterior disc post osteophyte. Facet hypertrophy. A small focal right posterior disc protrusion minimally displaces the right S1 nerve root in the right lateral recess. No central canal stenosis. Moderate bilateral foraminal narrowing with mild flattening deformity on the exiting bilateral L5 nerve roots. IMPRESSION: 1. Canal stenosis is moderate at L2-L3, moderate at L3-L4, and mild at L4-L5. 2. At L5-S1 there is a small focal right posterior disc protrusion which minimally displaces the right S1 nerve root in the right lateral recess. 3. Multilevel foraminal narrowing as described above. Dictated by: Froylan Rodriguez M.D. on 03/28/2021 at 14:24 Approved by: Froylan Rodriguez M.D. on 03/28/2021 at 14:39
== END ==
PROVIDERS: PCP Internal Medicine; Referring Provider Physical Medicine & Rehabilitation; Visit Provider Physical Medicine & Rehabilitation
DX: M51.17 Intervertebral disc disorders with radiculopathy, lumbosacral region (principal); M48.061 Spinal stenosis, lumbar region without neurogenic claudication; M48.07 Spinal stenosis, lumbosacral region
CPT/HCPCS: 72148

== ENCOUNTER → 2021-09-12 11:36 | Outpatient (CLI) | payer MEDICARE, SELFPAY ==
--- NOTE | 2021-09-12 11:39 | DI.CT.S_ITS ---
PROCEDURE: CT SINUS SCREEN WO CON INDICATIONS: Chronic pansinusitis TECHNIQUE: Noncontrast 3.0 mm axial images acquired from the frontal sinuses to the mid-sella, with coronal and sagittal reformats. For radiation dose reduction, the following was used: automated exposure control, adjustment of mA and/or kV according to patient size. COMPARISON: None. FINDINGS: Image quality: Excellent. Paranasal sinuses are normally aerated. No mucosal thickening identified. No air-fluid levels identified. Ostiomeatal units are patent bilaterally. No osseous erosions, osseous remodeling or osseous thickening. Nasal septum is deviated to the left. Right cristian bullosa noted. No paradoxical turbinates. Type 2 cribriform plate is noted. No ethmoid roof variance. Anterior ethmoid artery notches are at risk bilaterally. Type 1 right frontal air cell and type 2 left frontal air cell noted. Sphenoid pneumatization pattern is sellar complete. Sphenoid inter sinus septum is deviated to the left and attach is to the left osseous optic canal. IMPRESSION: No paranasal sinus mucosal thickening or air-fluid levels. Dictated by: Rocío Turk MD, PhD on 09/12/2021 at 16:04 Approved by: Rocío Turk MD, PhD on 09/12/2021 at 16:07
--- NOTE | 2021-09-12 11:43 | DI.RAD.S_ITS ---
PROCEDURE: XR CHEST 2V INDICATIONS: Chronic COUGH TECHNIQUE: 2 views of the chest were acquired. COMPARISON: [facility], CT, CT CHEST W CON, 04/06/2020, 22:42. [facility], CR, CHEST 1 VIEW, 10/23/2016, 12:14. [facility], CR, XR CHEST 2V, 04/06/2020, 21:14. FINDINGS: Surgical changes and devices: None. Lungs and pleura: Lungs are clear, aside from rounded density again seen projected over the right lung base which appears unchanged over time and may represent a prominent nipple shadow. Mild prominence of the interstitium redemonstrated. No pleural effusions or pneumothorax. Mediastinum: Mediastinal contours are normal. Heart size is normal. Bones and chest wall: No suspicious bony abnormalities. Soft tissues appear unremarkable. IMPRESSION: Mild interstitial prominence as before; otherwise no acute cardiopulmonary disease. Dictated by: Kenny Clement RRA Interpreted: Humberto Celaya MD on 09/12/2021 at 13:20 Transcribed by: ADAN on 09/12/2021 at 13:23 Approved by: Humberto Celaya M.D. on 09/12/2021 at 16:45
== END ==
PROVIDERS: PCP Internal Medicine; Referring Provider Otolaryngology; Visit Provider Otolaryngology
DX: J32.4 Chronic pansinusitis (principal); R05.9 Cough, unspecified
CPT/HCPCS: 70486; 71046

== ENCOUNTER → 2021-11-15 11:07 | Outpatient (CLI) | payer MEDICARE, SELFPAY ==
--- NOTE | 2021-11-15 | DI.CT.S_ITS ---
PROCEDURE: CT CHEST HIGH RESOLUTION INDICATIONS: Bronchiectasis, uncomplicated TECHNIQUE: Noncontrast 1.0 and 5.0 mm thick contiguous axial sections from the pulmonary apex to the posterior costophrenic angles, with 7 mm thick coronal and sagittal MIP reformats. 1 mm thick dynamic expiratory images acquired through the upper, mid, and lower lungs. 1.0 mm thick axial sections acquired from the chelsy to the posterior costophrenic angles in the prone end-inspiration position. For radiation dose reduction, the following was used: automated exposure control, adjustment of mA and/or kV according to patient size. COMPARISON: [facility], CR, XR CHEST 2V, 09/12/2021, 11:36. [facility], CT, CT CHEST W CON, 04/06/2020, 22:42. FINDINGS: Image quality: Excellent. Lungs: Mild bronchiectasis bilaterally. Subtle ground-glass infiltrate in the right lower lobe. Mild subpleural septal thickening bilaterally. No pulmonary fibrosis. There is a 1.2 cm lucency in the right lower lobe, compatible with a blebs or bulla. No air trapping on dynamic images. There are pleural parenchymal scars in apecies bilaterally, right middle lobe, right lower lobe, lingula, and left lower lobe. No focal consolidation. There are a couple of nodules in the right lung, unchanged in size since 04/06/2020. Nodule 1: 4 mm; right middle lobe; series 3, image 171; solid. Nodule 2: 4 mm; right apex; series 3, image 158; solid. Pleura: No pleural effusions or pneumothorax. Mediastinum: Heart size is normal. No pericardial effusion. Thoracic aorta and central pulmonary arteries are normal in size. Esophagus is normal in caliber. Bones and chest wall: No suspicious bony lesions. No vertebral body compression fractures. Degenerative changes are noted in lower cervical spine, thoracic spine and upper lumbar spine. There is an intraosseous hemangioma in L2. Small sclerotic foci in T8, T9, T11, and L1 are unchanged, most likely bone islands. Abdomen: Visualized upper abdominal solid organs and bowel loops appear normal. IMPRESSION: 1. Mild subpleural septal thickening. No pulmonary fibrosis. 2. Subtle ground-glass infiltrate in the right lower lobe. Most likely inflammatory or infectious etiology. 3. Mild bronchiectasis. 4. A 1.2 cm bleb or bulla in the right lower lobe. 5. Pleural parenchymal scars in apices bilaterally, right middle, lingula and both lower lobes. 6. Small subcentimeter lung nodules in right lung, unchanged, most likely benign. Please see enclosed follow-up recommendation. Fleischner Society criteria for SOLID lung nodule followup. Nodule size (mm)Low-risk patientHigh-risk patient?4No follow-up neededFollow-up at 12 mo; if no change, no further follow-up>1-8Ceortl-zj CT at 12 mo; if no change, no further follow-up needed.Initial follow-up CT at 6-12 mo, then 18-24 mo if no change. >6-8Initial follow-up CT at 6-12 mo, then 18-24 mo if no change. Initial follow-up CT at 3-6 mo, then 9-12 mo and 24 mo if no change. >8Follow-up CT at 3, 9, 24 mo. Or PET and/or biopsy.Same as for low-risk pts. Dictated by: Humberto Celaya M.D. on 11/16/2021 at 11:40 Approved by: Humberto Celaya M.D. on 11/16/2021 at 11:54
== END ==
PROVIDERS: PCP Internal Medicine; Referring Provider Internal Medicine Critical Care Medicine; Visit Provider Internal Medicine Critical Care Medicine
DX: J47.9 Bronchiectasis, uncomplicated (principal); R91.8 Other nonspecific abnormal finding of lung field
CPT/HCPCS: 71250

== ENCOUNTER → 2021-11-22 11:21 | Outpatient (CLI) | payer MEDICARE, SELFPAY ==
[2021-11-22 12:05] LABS: COVID19 -Nasal RAPID Negative (Negative)
== END ==
PROVIDERS: PCP Internal Medicine; Referring Provider Internal Medicine; Visit Provider Internal Medicine
DX: Z20.822 Contact with and (suspected) exposure to COVID-19 (principal)
CPT/HCPCS: 87635; C9803

== ENCOUNTER → 2021-11-23 10:52 | Outpatient (CLI) | payer MEDICARE, SELFPAY ==
--- NOTE | 2021-11-29 08:42 | PM.PFT.1 ---
Pulmonary Function Test Referral & Results Date Patient Seen: 11/23/21 Requesting provider: Steven Lucio Results: The spirometry demonstrates an FVC of 4.21 L which is 108% of predicted. The FEV1 was measured at 2.75 L which is 99% of predicted. The FEV1/FVC ratio was 65 which is 90% of predicted. Following the administration of bronchodilator there was no significant change to above normal numbers Lung volumes show an SVC of 4.28 L which is 100% of predicted. The diffusing capacity was measured at 24.46 which is 78% of predicted. No hemoglobin value was provided, so no correction for potential anemia could be made, if appropriate. The maximum voluntary ventilation was normal Interpretation: This study demonstrates normal spirometry. There may be a minimal reduction diffusing capacity suggesting the possibility of disease at the capillary alveolar level Clinical correlation suggested
== END ==
PROVIDERS: PCP Internal Medicine; Referring Provider Internal Medicine Critical Care Medicine; Visit Provider Internal Medicine Critical Care Medicine
DX: J47.9 Bronchiectasis, uncomplicated (principal); J98.8 Other specified respiratory disorders; Z87.891 Personal history of nicotine dependence
CPT/HCPCS: 94060; 94726; 94729

== ENCOUNTER → 2021-12-12 10:52 | Outpatient (CLI) | payer MEDICARE, SELFPAY ==
[2021-12-13 14:03] LABS: Free Kappa Lt Chains, Serum 14.8 mg/L (3.3-19.4); Free Lambda Lt Chains,Serum 11.4 mg/L (5.7-26.3)
[2021-12-14 09:36] LABS: Immunoglobulin A, Serum 173 mg/dL (61-437); Immunoglobulin G,Serum 635 mg/dL (603-1613); Immunoglobulin M, Serum 86 mg/dL (15-143)
[2021-12-15 14:58] LABS: ANA Screen, IFA Negative (.)
== END ==
PROVIDERS: PCP Internal Medicine; Referring Provider Psychiatry & Neurology Neurology; Visit Provider Psychiatry & Neurology Neurology
DX: R29.898 Other symptoms and signs involving the musculoskeletal system (principal)
CPT/HCPCS: 36415; 82784; 83883; 84155; 86038; 86334

== ENCOUNTER → 2022-01-22 07:27 | Outpatient (CLI) | payer MEDICARE, SELFPAY ==
[2022-02-03 15:48] LABS: Acetylcholine Blocking AB 13 % (0-25); Acetylcholine Receptor Bind AB <0.03 nmol/L (0.00-0.24); MuSK Antibodies <1.0 U/mL (.)
== END ==
PROVIDERS: PCP Internal Medicine; Referring Provider Psychiatry & Neurology Neurology; Visit Provider Psychiatry & Neurology Neurology
DX: R29.898 Other symptoms and signs involving the musculoskeletal system (principal)
CPT/HCPCS: 36415; 83519; 86255

== ENCOUNTER → 2022-02-16 16:44 | Outpatient (CLI) | payer MEDICARE, SELFPAY ==
[2022-02-16 17:03] LABS: Hematocrit 42.4 % (41-53); Hemoglobin 14.5 g/dL (13.5-17.5); Mean Corpuscular HGB Conc 34.3 % (30-36); Mean Corpuscular Hemoglobin 31.4 PG (26-34); Mean Corpuscular Volume 91.8 fL (80-100); Platelet Count 171 X10^3/uL (150-400); Red Blood Cell Count 4.62 X10^6/uL (4.5-5.9); Red Cell Distribution Width 14.3 % (11.6-14.8); White Blood Cell Count 8.4 X10^3/uL (4.5-11.0)
[2022-02-16 17:36] LABS: Alanine Aminotransferase 25 IU/L (<50); Albumin 4.7 g/dL (3.5-5.0); Albumin Globulin Ratio 1.7 (1.0-2.8); Alkaline Phosphatase 83 U/L (38-126); Aspartate Aminotransferase 36 IU/L (17-59); BUN Creatinine Ratio 21.2 (6-22); Bilirubin Total 0.5 mg/dL (0.2-1.3); Blood Urea Nitrogen 21 mg/dL (9-20); Calcium 9.5 mg/dL (8.4-10.2); Carbon Dioxide 28 mmol/L (22-32); Chloride 108 mmol/L (98-107); Cholesterol 257 mg/dL (140-199); Estimated Glomerular Filt Rate > 60 mL/min (>60); Globulin 2.8 g/dL (1.7-4.1); Glucose 96 mg/dL (80-110); HDL Cholesterol 48 mg/dL (40-60); HEMOLYSIS < 15 (0-50); LDL Cholesterol Calculated 162 mg/dL (<100); Potassium 4.1 mmol/L (3.4-5.1); Sodium 142 mmol/L (137-145); Total Protein 7.5 g/dL (6.3-8.2); Triglycerides 235 mg/dL (35-150)
[2022-02-16 18:04] LABS: TSH w/ Reflex to FT4 1.71 uIU/mL (0.47-4.68)
[2022-02-16 18:06] LABS: Testosterone 203 ng/dL (71.8-623)
== END ==
PROVIDERS: PCP Internal Medicine; Referring Provider Internal Medicine; Visit Provider Internal Medicine
DX: E78.2 Mixed hyperlipidemia (principal); G89.29 Other chronic pain; I10 Essential (primary) hypertension; I48.91 Unspecified atrial fibrillation; M54.9 Dorsalgia, unspecified
CPT/HCPCS: 36415; 80053; 80061; 84403; 84443; 85027

== ENCOUNTER → 2022-03-30 08:46 | Outpatient (CLI) | payer MEDICARE, SELFPAY ==
--- NOTE | 2022-03-30 | DI.MRI.S_ITS ---
PROCEDURE: MR LUMBAR SPINE WO CON INDICATIONS: Lumbago with sciatica, left side TECHNIQUE: Noncontrast sagittal T1 spin echo and T2 fast echo, sagittal STIR, and T2 fast spin echo through the lumbar spine. Additional oblique axial T2 weighted the images were obtained through the lower lumbar spine In cases with scoliosis, additional coronal T2 fast spin echo may be performed. COMPARISON: [facility], MR, MR LUMBAR SPINE WO CON, 03/28/2021, 12:08. [facility], CR, XR LUMBAR SPINE WITH OLBIQUES PLUS FLEXION EXTENSION, 03/16/2021, 10:58. [facility], CT, ABDOMEN/PELVIS WITH CONTRAST, 08/31/2016, 13:22. FINDINGS: Image quality: This examination is limited by involuntary motion artifact. Alignment and Curvature: There is normal bony alignment. Bone Marrow: Marrow is of normal overall signal. Scattered foci are seen, which are hyperintense on T1-weighted and T2-weighted imaging, which are most consistent with benign vertebral body hemangiomas. No acute vertebral body compression fractures. There is a remote, stable L4 compression deformity seen, with 40% loss of height anteriorly. Spinal Cord: Conus medullaris terminates at the L1 level. Visualized cord demonstrates normal signal and size. Paraspinous Soft Tissues: No paravertebral masses. T12-L1: Moderate loss of disc height is seen. Loss of disc signal is seen. Moderate generalized disc bulge is seen. There is a mild central disc extrusion, with superior migration of the disc material. There is ksdc-br-vhojkrov right-sided and mild left-sided neural foraminal narrowing. Mild central canal narrowing is seen. When comparison is made with the prior images, these findings are similar. L1-L2: Mild loss of disc height is seen. Loss of disc signal is seen. Mild generalized disc bulge is seen. Mild facet joint hypertrophy is seen. There is moderate right-sided and mild left-sided neural foraminal narrowing. Mild central canal narrowing is seen. When comparison is made with the prior images, these findings are similar. L2-L3: Mild loss of disc height is seen. Loss of disc signal is seen. Moderate disc bulge is seen, which is eccentric to the left. There is a central/left disc protrusion, as on series 5, image 16. Moderate facet joint hypertrophy is seen. Associated hypertrophy of the ligamentum flavum can be seen. When comparison is made with the prior images, these findings are similar. L3-L4: The disc height is well-preserved. Loss of disc signal is seen at this level. Moderate generalized disc bulge is seen. There is a superimposed central disc protrusion. Moderate facet joint hypertrophy is seen. There is sjyr-dq-xuvrkjgg left-sided and moderate right-sided neural foraminal narrowing. Moderate central canal narrowing is seen. When comparison is made with the prior images, these findings are similar. L4-L5: Zpmt-gv-gdpehklh loss of disc height and disc signal can be seen. Moderate disc bulge is seen, which is eccentric to the left. There is a superimposed central disc protrusion. Moderate facet joint hypertrophy is seen. There is at least moderate left-sided neural foraminal narrowing, with a mild degree of compression upon the exiting left L4 nerve root. Moderate right-sided neural foraminal narrowing is seen. Moderate central canal narrowing is seen. No significant change from the prior. L5-S1: There is at least moderate loss of disc height and disc signal seen. Reactive marrow endplate changes are seen, which demonstrate mixed T1 weighted and T2-weighted signal, and are attributed to a combination of edema and fatty metaplasia (Modic type I and Modic type II changes). At least moderate disc bulge is seen, which is eccentric to the left. Moderate facet joint hypertrophy is seen. Moderate bilateral neural foraminal narrowing is seen. Mild central canal narrowing is seen. When comparison is made with the prior images, these findings are similar. IMPRESSION: Multiple levels of lumbar spine degenerative change are seen, which are overall worst at the L5-S1 level. The degenerative changes are similar to 2020. Remote L4 anterior wedge deformity noted. Dictated by: Cristhian Tafoya M.D. on 03/30/2022 at 10:55 Approved by: Cristhian Tafoya M.D. on 03/30/2022 at 11:02
== END ==
PROVIDERS: PCP Internal Medicine; Referring Provider Orthopaedic Surgery; Visit Provider Orthopaedic Surgery
DX: M47.816 Spondylosis without myelopathy or radiculopathy, lumbar region (principal); M47.817 Spondylosis without myelopathy or radiculopathy, lumbosacral region; M54.42 Lumbago with sciatica, left side; M48.56XS Collapsed vertebra, not elsewhere classified, lumbar region, sequela of fracture; G89.29 Other chronic pain
CPT/HCPCS: 72148

== ENCOUNTER → 2022-04-12 06:59 | Outpatient (CLI) | payer MEDICARE, SELFPAY ==
--- NOTE | 2022-04-12 | DI.ECHO.S_ITS ---
[facility]---------+ [facility] +---------+ : : [address] : : : : [id number] : : : : Phone: [phone]+ Echocardiogram Report + + :Name: IGOR CRAFT Study Date: 04/12/2022 Height: 69 in : :[facility] ReadingLocation: Weight: 161 lb : : Gender: Male BSA: 1.9 m2 : :: 1940 Age: 82 yrs BP: 141/72 mmHg: :Reason For Study: Atrial fibrillation : :Ordering Physician: Cayla, : :Bea Performed By: Kurt Renteria : :Referring: Bea Kulkarni : + + Interpretation Summary The ejection fraction is estimated to be 60-65%. Diastolic parameters suggest probable normal left ventricular diastolic function and normal filling pressures. The right ventricle is normal in size and function. There is mild mitral regurgitation. There is mild tricuspid regurgitation. The right ventricular systolic pressure is estimated to be at least 27 mmHg based on an estimated right atrial pressure of 3 mm Hg. Procedure: A two-dimensional transthoracic echocardiogram with color flow and Doppler was performed. The study quality was technically adequate. There is no prior echocardiogram noted for this patient. The patient was in normal sinus rhythm during the exam. Left Ventricle: The left ventricle is normal in size and wall thickness. Left ventricular systolic function is normal. The ejection fraction is estimated to be 60-65%. There are no focal wall motion abnormalities. Diastolic parameters suggest probable normal left ventricular diastolic function and normal filling pressures. Right Ventricle: The right ventricle is normal in size and function. Atria: Both atria are normal in size. The interatrial septum grossly appears intact with no obvious evidence for an atrial septal defect. Mitral Valve: The mitral valve leaflets are mildly calcified. There is mild mitral regurgitation. Aortic Valve: The aortic valve is trileaflet. There is no aortic valve stenosis. No aortic regurgitation is present. Tricuspid Valve: There is mild tricuspid regurgitation. The right ventricular systolic pressure is estimated to be at least 27 mmHg based on an estimated right atrial pressure of 3 mm Hg. Pulmonic Valve: The pulmonic valve is normal in structure and function. There is a trace or physiologic amount of pulmonic regurgitation. Great Vessels: The aortic root is normal size. The dimensions of the ascending aorta are normal. The IVC is of normal diameter and collapses greater than 50% with a sniff. This suggests a low right atrial pressure of 3 mm Hg. Pericardium/ Pleura There is no pericardial effusion. There is no pleural effusion. MMode/2D Measurements & Calculations LVIDd: 4.5 cm LVOT diam: 2.0 cm LVIDs: 2.7 cm Ao root diam: 3.8 cm FS: 40.0 % asc Aorta Diam: 3.5 cm IVSd: 0.90 cm LVPWd: 0.90 cm LV caballero. diameter/BSA (cm/m^2): 2.4 LV sys. diameter/BSA (cm/m^2): 1.4 LA dimension: 2.9 cm RA long axis: 5.2 cm LA A2 area: 18.3 cm2 LA A4 area: 18.6 cm2 LA length (vol): 5.2 cm LA vol: 55.7 ml LA vol index: 29.6 ml/m2 TAPSE_phl: 3.2 cm Doppler Measurements & Calculations Ao V2 max: 106.0 cm/sec LVOT Max Eduardo: 131.0 cm/sec Ao V2 mean: 80.2 cm/sec LV V1 max P.9 mmHg Ao max P.0 mmHg LV V1 VTI: 28.0 cm Ao mean P.0 mmHg SRAVAN(I,D): 3.5 cm2 Ao V2 VTI: 24.8 cm SRAVAN(V,D): 3.9 cm2 sev ratio: 1.1 SRAVAN indexed to BSA (cm^2/m^2): 1.9 MV E max eduardo: 72.4 cm/sec TR max eduardo: 247.0 cm/sec MV A max eduardo: 86.5 cm/sec TR max P.4 mmHg MV E/A: 0.84 Med Peak E' Eduardo: 6.8 cm/sec E/E' med: 10.7 Lat Peak E' Eduardo: 8.0 cm/sec E/E' lat: 9.0 E/e' average: 9.9 MV dec time: 0.29 sec SV(LVOT): 88.0 ml AV VR_phl: 1.2 SRAVAN(VTI)/BSA_phl: 1.9 MV P1/2t-pr_phl: 84.0 msec Reading Physician:01:11 PM
== END ==
PROVIDERS: PCP Internal Medicine; Referring Provider Internal Medicine Interventional Cardiology; Visit Provider Internal Medicine Interventional Cardiology
DX: I48.91 Unspecified atrial fibrillation (principal); I08.1 Rheumatic disorders of both mitral and tricuspid valves
CPT/HCPCS: 93306

== ENCOUNTER → 2022-05-17 07:38 | Outpatient (CLI) | payer MEDICARE, SELFPAY ==
[2022-05-17 09:23] LABS: Erythrocyte Sedimentation Rate 1 MM/HR (0-15)
[2022-05-17 09:40] LABS: Creatine Kinase 293 U/L (55-170)
== END ==
PROVIDERS: PCP Internal Medicine; Referring Provider Psychiatry & Neurology Neurology; Visit Provider Psychiatry & Neurology Neurology
DX: R29.898 Other symptoms and signs involving the musculoskeletal system (principal)
CPT/HCPCS: 36415; 82525; 82550; 85651

== ENCOUNTER → 2022-06-21 11:12 | Outpatient (CLI) | payer MEDICARE, SELFPAY ==
--- NOTE | 2022-06-21 | DI.MRI.S_ITS ---
PROCEDURE: MR THORACIC SPINE WO CON INDICATIONS: Disease of spinal cord, unspecified TECHNIQUE: Noncontrast sagittal T1 spine echo and T2 fast spin echo, sagittal STIR, and T2 fast spin echo through the thoracic spine. COMPARISON: [facility], CT, CT CHEST HIGH RESOLUTION, 11/15/2021, 11:13. FINDINGS: Image quality: Excellent. Alignment and Curvature: There is exaggerated thoracic kyphosis. Bone Marrow: Marrow is of normal overall signal. No acute vertebral body compression fractures. Hemangiomas are seen in the thoracic spine at the T5 and T6 levels as well as T8 and L2. No acute osseous edema. No suspicious marrow replacing process. Spinal Cord: Visualized spinal cord is normal in size and signal. Paraspinous Soft Tissues: No paravertebral masses. A a T2-hyperintense cyst is partially imaged in the right kidney. Miscellaneous: On axial images, central canal and foramina appear widely patent at all scanned levels. IMPRESSION: No acute osseous edema or compression fracture. No significant thoracic spinal canal narrowing or neural foraminal narrowing. Dictated by: Lon Rm M.D. on 06/21/2022 at 18:06 Approved by: Lon Rm M.D. on 06/21/2022 at 18:16
== END ==
PROVIDERS: PCP Internal Medicine; Referring Provider Psychiatry & Neurology Neurology; Visit Provider Psychiatry & Neurology Neurology
DX: G95.9 Disease of spinal cord, unspecified (principal)
CPT/HCPCS: 72146

== ENCOUNTER → 2022-11-20 07:29 | Outpatient (CLI) | payer MEDICARE, SELFPAY ==
[2022-11-20 08:30] LABS: Hemoglobin A1C% w Est Avg Glu 5.3 % (4.0-6.0)
[2022-11-22 08:20] LABS: Albumin 3.5 g/dL (2.9-4.4); Alpha-1-Globulin 0.2 g/dL (0.0-0.4); Alpha-2-Globulin 0.7 g/dL (0.4-1.0); Gamma Globulin 0.6 g/dL (0.4-1.8); Globulin Total 2.5 g/dL (2.2-3.9)
== END ==
PROVIDERS: PCP Internal Medicine; Referring Provider Psychiatry & Neurology Neurology; Visit Provider Psychiatry & Neurology Neurology
DX: G62.9 Polyneuropathy, unspecified (principal)
CPT/HCPCS: 36415; 83036; 84155; 84165

== ENCOUNTER → 2022-12-05 07:15 | Outpatient (CLI) | payer MEDICARE, SELFPAY ==
[2022-12-05 09:16] LABS: Hematocrit 45.7 % (41-53); Hemoglobin 14.9 g/dL (13.5-17.5); Mean Corpuscular HGB Conc 32.5 % (30-36); Mean Corpuscular Hemoglobin 30.6 PG (26-34); Mean Corpuscular Volume 94.1 fL (80-100); Platelet Count 190 X10^3/uL (150-400); Red Blood Cell Count 4.85 X10^6/uL (4.5-5.9); Red Cell Distribution Width 14.4 % (11.6-14.8); White Blood Cell Count 6.1 X10^3/uL (4.5-11.0)
[2022-12-05 09:39] LABS: Alanine Aminotransferase 26 IU/L (<50); Albumin 4.5 g/dL (3.5-5.0); Albumin Globulin Ratio 1.6 (1.0-2.8); Alkaline Phosphatase 88 U/L (38-126); Aspartate Aminotransferase 32 IU/L (17-59); BUN Creatinine Ratio 20.7 (6-22); Bilirubin Total 0.7 mg/dL (0.2-1.3); Blood Urea Nitrogen 18 mg/dL (9-20); Calcium 9.2 mg/dL (8.4-10.2); Carbon Dioxide 30 mmol/L (22-32); Chloride 102 mmol/L (98-107); Cholesterol 208 mg/dL (140-199); Estimated Glomerular Filt Rate > 60 mL/min (>60); Globulin 2.8 g/dL (1.7-4.1); Glucose 81 mg/dL (80-110); HDL Cholesterol 44 mg/dL (40-60); HEMOLYSIS < 15 (0-50); LDL Cholesterol Calculated 140 mg/dL (<100); Potassium 3.7 mmol/L (3.4-5.1); Sodium 141 mmol/L (137-145); Total Protein 7.3 g/dL (6.3-8.2); Triglycerides 118 mg/dL (35-150)
[2022-12-05 10:09] LABS: Prostate Specific Antigen 3.22 ng/mL (0.10-4.00)
[2022-12-05 10:11] LABS: Testosterone 332 ng/dL (71.8-623)
[2022-12-05 10:16] LABS: TSH w/ Reflex to FT4 2.28 uIU/mL (0.47-4.68)
== END ==
PROVIDERS: PCP Internal Medicine; Referring Provider Internal Medicine; Visit Provider Internal Medicine
DX: E78.2 Mixed hyperlipidemia (principal); N40.1 Benign prostatic hyperplasia with lower urinary tract symptoms; I10 Essential (primary) hypertension; N13.8 Other obstructive and reflux uropathy; Z87.898 Personal history of other specified conditions
CPT/HCPCS: 36415; 80053; 80061; 84153; 84403; 84443; 85027

== ENCOUNTER → 2023-02-18 09:15 | Outpatient (CLI) | payer MEDICARE, SELFPAY ==
--- NOTE | 2023-02-18 09:38 | DI.MRI.S_ITS ---
PROCEDURE: MR HEAD/BRAIN WO CON INDICATIONS: Weakness;cerebrovascular disease TECHNIQUE: Non-contrast axial T1 spin echo, axial T2 fast spin echo, sagittal and axial FLAIR, coronal T2 fast spin echo, axial gradient echo, axial diffusion and ADC through the brain. COMPARISON: None. FINDINGS: Image quality: Excellent. CSF spaces: Ventricles appear symmetric in size and shape. Basal cisterns are patent. No extra-axial fluid collections. Brain: No intracranial bleeds or mass effects. There is cerebral volume loss for age. There are periventricular and deep white matter chronic small vessel ischemic changes. Brainstem appears normal. Diffusion-weighted images show no acute ischemic insults. No chronic ischemic insults. Normal intravascular flow voids are present. Skull and face: Calvarial bone marrow is normal in signal. Orbits are normal. Sinuses: Sinuses and mastoids are clear. IMPRESSION: 1. No acute process. No recent infarct. 2. Volume loss and small vessel ischemic disease. Dictated by: Ronny Oliva M.D. on 02/18/2023 at 10:07 Approved by: Ronny Oliva M.D. on 02/18/2023 at 10:08
== END ==
PROVIDERS: PCP Internal Medicine; Referring Provider Internal Medicine; Visit Provider Internal Medicine
DX: I67.9 Cerebrovascular disease, unspecified (principal); G62.9 Polyneuropathy, unspecified; R29.898 Other symptoms and signs involving the musculoskeletal system; R20.0 Anesthesia of skin; R29.2 Abnormal reflex; G95.9 Disease of spinal cord, unspecified
CPT/HCPCS: 70551

== ENCOUNTER 2023-04-22 02:34 | Emergency (ER) | payer MEDICARE, SELFPAY ==
[2023-04-22] VITALS (11 sets, daily range): BP systolic 114–130; BP diastolic 73–91; PULSE 73–139; RESP 9–25; TEMP 36.6; O2SAT 93–98; BMI 24.3
--- NOTE | 2023-04-22 03:05 | ED_ITS ---
HPI - Arrhythmia/Palpitations General Chief Complaint: Arrhythmia/Palpitations Stated Complaint: irregular heart beat Time Seen by Provider: 04/22/23 02:39 Source: patient Mode of arrival: Ambulatory History of Present Illness HPI narrative: Patient is an 83-year-old male. He does have a history of atrial fibrillation. He states that his last episode of atrial fibrillation was many years ago. He is on metoprolol but not specifically because of AFib. He is not anticoagulated. He states that at approximately midnight which was just 3 hours prior to arrival here in the emergency department he started have episodes where he felt like his heart was beating fast. He is not having any lightheadedness. No chest pain. He took his blood pressure multiple times at home and also his pulse. He states his heart rate was elevated and occasionally an error message came on the machine which he states would be consistent with an irregular heart rhythm. Has had no change in bowel symptoms. He states he has urinated multiple times since this started as well. He does have follow-up with his instructional technology specialist later today. This appointment was scheduled prior to this event happening. Related Data Home Medications Medication Instructions Recorded Confirmed fexofenadine 180 mg tablet 180 mg PO DAILY PRN Allergic 03/21/13 03/25/23 Symptoms ##0 melatonin 5 mg tablet 5 mg PO BEDTIME PRN Insomnia ##0 12/17/18 03/25/23 multivitamin 1 tab PO DAILY ##0 12/17/18 03/25/23 fluticasone propionate 110 1 puff inhalation BID 02/16/22 03/25/23 mcg/actuation HFA aerosol inhaler (Flovent HFA) ascorbic acid (vitamin C) 1,000 mg 1,000 mg PO DAILY 05/21/22 03/25/23 tablet cholecalciferol (vitamin D3) 25 25 mcg PO DAILY 05/21/22 03/25/23 mcg (1,000 unit) capsule amlodipine 10 mg tablet 10 mg PO DAILY 08/13/22 03/25/23 alyson queen GA 2-xucdgtuy-mobhc 25 ea PO 08/13/22 03/25/23 gram-385 kcal/100 gram oral powder metronidazole 0.75 % topical cream 1 applic topical BID PRN 03/25/23 03/25/23 Previous Rx's Medication Instructions Recorded metoprolol succinate 25 mg 25 mg PO DAILY #90 tabs 11/28/22 tablet,extended release 24 hr lisinopril 40 mg tablet 40 mg PO DAILY #90 tabs 11/22/22 ezetimibe 10 mg tablet 10 mg PO DAILY #90 tabs 12/04/22 lorazepam 0.5 mg tablet (Ativan) 0.5 mg PO BEDTIME PRN Insomnia #90 12/04/22 tabs sildenafil 25 mg tablet 100 mg PO .COMPLEX PRN sexual 01/11/23 activity #50 tabs duloxetine 20 mg capsule,delayed 20 mg PO BID #60 caps 03/25/23 release apixaban 5 mg (74 tabs) tablets in See Rx Instructions PO .COMPLEX 04/22/23 a dose pack (MI Airline DVT-PE Treat #74 ea 30D Start) tamsulosin 0.4 mg capsule (Flomax) 0.4 mg PO DAILY #30 caps 04/22/23 Allergies Allergy/AdvReac Type Severity Reaction Status Date / Time formoterol [FORMOTEROL] Allergy Intermediate patient Verified 03/25/23 14:55 states it gave him a-fib budesonide [BUDESONIDE] AdvReac Intermediate patient Verified 03/25/23 14:55 states it gave him a-fib pseudoephedrine AdvReac Unknown gave pt Verified 03/25/23 14:55 [From Sudafed] afib Ltlmalu-IOA-ZmY Reductase AdvReac Unknown muscle Verified 03/25/23 14:55 Inhibitor pains [Ujgdqdl-Bja-Fky Reductase Inhibitor] Review of Systems Review of Systems ROS Unobtainable: All systems reviewed & are unremarkable except as noted in HPI and below Patient History Medical History Allergies (~1954) Asthma (~2011) Atrial fibrillation (~2012) BPH w urinary obs/LUTS Bronchiectasis (~2020) Cataracts, bilateral (~2015) Chicken pox (~1946) Chronic back pain (~2021) Chronic cough (~2011) Colon polyps (~1999) Essential hypertension Generalized anxiety disorder GERD (gastroesophageal reflux disease) (~2016) Hemorrhoid (~1984) History of colon polyps History of elevated PSA (~1977) Mixed hyperlipidemia Osteoarthritis (~2014) Polyneuropathy Restless leg syndrome (~1999) Surgical History Anesthesia History of appendectomy (~1960) History of cataract surgery (~2018) History of colonoscopy History of hemorrhoidectomy History of partial knee replacement (~2017) History of thoracotomy (~1965) History of tonsillectomy (~1947) Family History Father History of heart disease Mother Stroke Brother Lung cancer Prostate cancer Hyperlipidemia Hypertension Social History household members: spouse Smoking Status: Former smoker Smoking Status: Former smoker Exam Initial Vital Signs Initial Vital Signs: Vital Signs Temperature 97.8 F 04/22/23 02:47 Pulse Rate 139 H 04/22/23 02:47 Respiratory Rate 15 04/22/23 02:47 Blood Pressure 114/80 04/22/23 02:47 Pulse Oximetry 95 04/22/23 02:47 Oxygen Delivery Method Room Air 04/22/23 02:47 Const General: cooperative, comfortable and No ill appearing HENMT Head: normal to inspection and normocephalic Resp Effort & Inspection: normal respiratory effort Auscultation: clear to auscultation bilaterally Cardio Rate: tachycardic Rhythm: regular rhythm GI Inspection: normal to inspection and non-distended Skin General: no rashes or lesions noted Neuro General: patient alert, patient awake and moves all extremities Extrem General: normal to inspection and capillary refill normal Procedures Cardioversion Consent Signed: Yes Indication: Atrial flutter Stability: Stable Number of attempts (shocks): 1 Joules used: 120 Procedural Sedation Consent signed: Yes Time out performed: Yes Indication: cardioversion ASA Class: III Mallampati Airway Classification: Class II Preparation: vehicle monitor technician applied, pulse oximeter, capnometry used, supplemental O2 applied, suction/airway equipment at bedside and IV secured Fentanyl: IV Fentanyl dose (mcg): 12 IV Propofol dose (mg): 50 Intraservice time/total sedation time (min): 15 ED Sedation Level: Moderate (Concious) Patient Tolerated Procedure: Well Complications: hypoxia Interventions: Airway repositioned and Oxygen applied Course Orders Ordered: ED Orders 04/22/23 02:39 EKG-12 Lead Stat 04/22/23 02:45 Complete Blood Count AUTO DIFF Stat Comprehensive Metabolic Panel Stat Magnesium Stat PTT Partial Thromboplastin Sanjeev Stat Prothrombin Time INR Stat 04/22/23 03:36 EKG-12 Lead Stat Sodium Chloride (Normal Saline 0.9%) 1,000 mls @ 125 mls/hr IV CONT NAM Last Admin: 04/22/23 03:29 Dose: 125 mls/hr Documented By: Discontinued Medications Diltiazem HCl (Diltiazem 5 Mg/Ml Sdv) 10 mg IV NOW ONE Stop: 04/22/23 02:49 Last Admin: 04/22/23 03:22 Dose: Not Given Documented By: AMY Fentanyl (Fentanyl 100 Mcg/2 Ml Inj) 12.5 mcg IV NOW ONE Stop: 04/22/23 03:06 Last Admin: 04/22/23 03:29 Dose: 12.5 mcg Documented By: Propofol (Propofol 200 Mg/20 Ml Vial) 100 mg IV NOW ONE Stop: 04/22/23 03:06 Last Admin: 04/22/23 03:30 Dose: 50 mg Documented By: Vital Signs Vital signs: Vital Signs - 8 hr 04/22/23 02:47 04/22/23 02:49 04/22/23 03:00 Temperature 97.8 F Pulse Rate 139 H 137 H Respiratory Rate 15 25 H Blood Pressure 114/80 123/87 Pulse Oximetry 95 98 Oxygen Delivery Method Room Air Oxygen Flow Rate 04/22/23 03:00 04/22/23 03:25 04/22/23 03:25 Temperature Pulse Rate 137 H 135 H Respiratory Rate 23 20 Blood Pressure 130/91 H Pulse Oximetry 97 97 Oxygen Delivery Method Oxygen Flow Rate 04/22/23 03:30 04/22/23 03:30 04/22/23 03:35 Temperature Pulse Rate 135 H 84 Respiratory Rate 22 9 L Blood Pressure 119/87 Pulse Oximetry 97 93 Oxygen Delivery Method Nasal Cannula Oxygen Flow Rate 3 04/22/23 03:35 04/22/23 03:40 04/22/23 03:40 Temperature Pulse Rate 78 Respiratory Rate 20 Blood Pressure 118/73 115/75 Pulse Oximetry 97 Oxygen Delivery Method Oxygen Flow Rate 04/22/23 03:45 04/22/23 03:45 04/22/23 04:00 Temperature Pulse Rate 79 Respiratory Rate 18 Blood Pressure 117/75 120/79 Pulse Oximetry 97 Oxygen Delivery Method Oxygen Flow Rate 04/22/23 04:00 Temperature Pulse Rate 76 Respiratory Rate 18 Blood Pressure Pulse Oximetry 98 Oxygen Delivery Method Oxygen Flow Rate MDM - Arrhythmia/Palpitations Lab Data Attestation: I reviewed the patient's lab results. 04/22/23 02:45 04/22/23 02:45 Labs: Lab Results 04/22/23 04/22/23 04/22/23 Range/Units 02:45 02:45 02:45 WBC 10.1 (4.5-11.0) X10^3/uL RBC 4.86 (4.5-5.9) X10^6/uL Hgb 15.4 (13.5-17.5) g/dL Hct 45.1 (41-53) % MCV 92.7 (80-100) fL MCH 31.6 (26-34) PG MCHC 34.1 (30-36) % RDW 14.0 (11.6-14.8) % Plt Count 208 (150-400) X10^3/uL Neut % (Auto) 50.4 (50-75) % Lymph % (Auto) 33.1 (25-40) % [place] % (Auto) 10.7 (3-14) % Eos % (Auto) 4.6 H (2-4) % Baso % (Auto) 1.2 (0-2) % Neut # (Auto) 5100 (5370-1178) /uL Lymph # (Auto) 3300 (6806-2801) /uL [place] # (Auto) 1100 H (0-900) /uL Eos # (Auto) 500 H (0-450) /uL Baso # (Auto) 100 (0-100) /uL PT 10.9 (10.1-12.7) SECONDS INR 1.0 (0.9-1.3) APTT 30 (26-36) SECONDS Sodium 143 (137-145) mmol/L Potassium 3.8 (3.4-5.1) mmol/L Chloride 107 (98-107) mmol/L Carbon Dioxide 27 (22-32) mmol/L BUN 25 H (9-20) mg/dL Creatinine 0.91 (0.66-1.25) mg/dL Estimated GFR > 60 (>60) mL/min BUN/Creatinine Ratio 27.5 H (6-22) Glucose 101 (80-110) mg/dL Calcium 9.7 (8.4-10.2) mg/dL Magnesium 1.9 (1.6-2.3) mg/dL Total Bilirubin 0.4 (0.2-1.3) mg/dL AST 33 (17-59) IU/L ALT 30 (<50) IU/L Alkaline Phosphatase 99 (38-126) U/L Total Protein 7.2 (6.3-8.2) g/dL Albumin 4.6 (3.5-5.0) g/dL Globulin 2.6 (1.7-4.1) g/dL Albumin/Globulin Ratio 1.8 (1.0-2.8) Urine Dip Bedside Urine Glucose Negative Bedside Urine Bilirubin - Negative Bedside Urine Ketone - Negative Urine Specific Whigham 1.005 Bedside Urine Occult Blood - Negative Bedside Urine pH 6 Bedside Urine Protein - Negative Bedside Urine Urobilinogen - Negative Bedside Urine Nitrite - Negative Bedside Urine Leukocytes - Negative Esterase ECG Data Attestation: I personally reviewed and interpreted this ECG as follows: Interpretation: Atrial flutter Ventricular rate 138 Normal QRS Normal QTC Nonspecific ST T wave changes Post cardioversion Sinus rhythm Ventricular rate is 77 Normal axis Normal QRS Normal QTC No ST T wave changes MDM Narrative Medical decision making narrative: Initially somewhat difficult to determine whether not the patient was in sinus tachycardia or atrial flutter. The EKG was spit up to 50 millimeters/second and flutter waves were more evident. Patient's symptoms started 3 hours prior to arrival here in the emergency department. Had a discussion with him regarding options to include cardioversion versus rate control. Discussed risks and benefits of each. After this discussion the patient opted for the cardioversion. Consent was signed. He was sedated as described above and cardioverted without issue. Unsure as to what caused his event today. He does have a follow-up with his instructional technology specialist already scheduled for later today. Will start the patient on Eliquis. He will continue with his metoprolol. Patient has had multiple episodes of urination. His urinalysis is unremarkable. Postvoid residual is proximally 250 cc of urine. I had a discussion with him with this. We discussed options to include placing a Townsend catheter versus placing him on Flomax. Patient would not like to have a catheter. We will send him home with a prescription for Flomax and he will see whether or not his symptoms improve over the next told to 24 hours and if they do not then he will start taking the Flomax as directed. He was also given a referral to follow-up with urology. He was given return precautions. He expressed understanding and agreement. Discharge Plan Departure Patient Disposition: Home Clinical Impression: Atrial flutter, Frequent urination Instructions: DI for Atrial Flutter, DI for Cardioversion Activity Restrictions/Additional Instructions: A prescription for Eliquis was sent to [facility] per your request. Please start taking this as directed. You were given a printed prescription for Flomax/tamsulosin. You can hold on this prescription and see whether or not your urinary symptoms improve over the next 12-24 hours. If they do not improve recommend that you fill this prescription and start taking it as directed. I also recommend that you contact the urologist at the number provided below for follow-up. Return to the emergency department for new or worsening symptoms. Prescriptions: New Eliquis DVT-PE Treat 30D Start 5 mg (74 tabs) tablets,dose pack See Rx Instructions .ROUTE .COMPLEX Qty: 74 0RF Rx Instructions: orally per package directions tamsulosin [Flomax] 0.4 mg capsule 0.4 mg PO DAILY Qty: 30 0RF No Action fexofenadine 180 MG tablet 180 mg PO DAILY PRN (Reason: Allergic Symptoms) Qty: 0 metoprolol succinate 25 mg tablet extended release 24 hr 25 mg PO DAILY Qty: 90 3RF lisinopril 40 mg tablet 40 mg PO DAILY Qty: 90 3RF sildenafil 25 mg tablet 100 mg PO .COMPLEX PRN (Reason: sexual activity) Qty: 50 6RF Rx Instructions: 1-4 tablets by mouth 30 minutes to 4 hours before sexual activity. This script replaces the previous script sent on 01/10/23. PRN; ezetimibe 10 mg tablet 10 mg PO DAILY Qty: 90 3RF lorazepam [Ativan] 0.5 mg tablet 0.5 mg PO BEDTIME PRN (Reason: Insomnia) Qty: 90 1RF Rx Instructions: One tablet daily as needed. Flovent HFA 110 mcg/actuation HFA aerosol inhaler 1 puff inhalation BID Patient Comments: INHALE 1 PUFF INTO THE LUNGS TWICE DAILY. RINSE MOUTH AFTER USE. cholecalciferol (vitamin D3) 25 mcg (1,000 unit) capsule 25 mcg PO DAILY ascorbic acid (vitamin C) 1,000 mg tablet 1,000 mg PO DAILY amlodipine 10 mg tablet 10 mg PO DAILY nut tx, [place] 0-laqolpsv-xccpg 25 gram-385 kcal/100 gram powder PO metronidazole 0.75 % cream 1 applic topical BID PRN duloxetine 20 mg capsule,delayed release(DR/EC) 20 mg PO BID Qty: 60 5RF multivitamin Tablet 1 tab PO DAILY Qty: 0 melatonin 5 mg Tablet 5 mg PO BEDTIME PRN (Reason: Insomnia) Qty: 0 Referrals: Dandy Palumbo MD [Primary Care Provider] - Max Castro MD [Physician] - Stand Alone Forms: Patient Portal/API
[2023-04-22 03:16] LABS: Prothrombin Time 10.9 SECONDS (10.1-12.7)
[2023-04-22 03:17] LABS: Add Manual Diff / Slide Review NO; Basophils Absolute Auto 100 /uL (0-100); Basophils Percent Auto 1.2 % (0-2); Eosinophils Absolute Auto 500 /uL (0-450); Eosinophils Percent Auto 4.6 % (2-4); Hematocrit 45.1 % (41-53); Hemoglobin 15.4 g/dL (13.5-17.5); Lymphocytes Absolute Auto 3300 /uL (1100-4500); Lymphocytes Percent Auto 33.1 % (25-40); Mean Corpuscular HGB Conc 34.1 % (30-36); Mean Corpuscular Hemoglobin 31.6 PG (26-34); Mean Corpuscular Volume 92.7 fL (80-100); Monocytes Absolute Auto 1100 /uL (0-900); Monocytes Percent Auto 10.7 % (3-14); Neutrophils Absolute Auto 5100 /uL (1500-7000); Neutrophils Percent Auto 50.4 % (50-75); Platelet Count 208 X10^3/uL (150-400); Red Blood Cell Count 4.86 X10^6/uL (4.5-5.9); White Blood Cell Count 10.1 X10^3/uL (4.5-11.0)
[2023-04-22 03:19] LABS: PTT Partial Thromboplastin Tim 30 SECONDS (26-36)
[2023-04-22 03:22] LABS: Alanine Aminotransferase 30 IU/L (<50); Albumin 4.6 g/dL (3.5-5.0); Albumin Globulin Ratio 1.8 (1.0-2.8); Alkaline Phosphatase 99 U/L (38-126); Aspartate Aminotransferase 33 IU/L (17-59); BUN Creatinine Ratio 27.5 (6-22); Bilirubin Total 0.4 mg/dL (0.2-1.3); Blood Urea Nitrogen 25 mg/dL (9-20); Calcium 9.7 mg/dL (8.4-10.2); Carbon Dioxide 27 mmol/L (22-32); Chloride 107 mmol/L (98-107); Estimated Glomerular Filt Rate > 60 mL/min (>60); Globulin 2.6 g/dL (1.7-4.1); Glucose 101 mg/dL (80-110); HEMOLYSIS 17 (0-50); Magnesium 1.9 mg/dL (1.6-2.3); Potassium 3.8 mmol/L (3.4-5.1); Sodium 143 mmol/L (137-145); Total Protein 7.2 g/dL (6.3-8.2)
[2023-04-22] MEDS: SODIUM CHLORIDE 0.9% 1,000 ML 125 ML IV (03:29)
[2023-04-22] MEDS: fentaNYL 100 MCG/2 ML INJ 12.5 MCG IV (03:29)
[2023-04-22] MEDS: propofoL 200 MG/20 ML VIAL 100 MG IV (03:30)
== END 2023-04-22 04:46 | disposition home or self-care (01) ==
PROVIDERS: Emergency Provider Emergency Medicine; PCP Internal Medicine
DX: I48.92 Unspecified atrial flutter (principal); Z79.01 Long term (current) use of anticoagulants; Z79.899 Other long term (current) drug therapy; R35.0 Frequency of micturition
CPT/HCPCS: 36415; 51798; 80053; 81003; 83735; 85025; 85610; 85730; 92960; 93005; 99152; 99285; J2704; J3010

== ENCOUNTER → 2023-05-31 07:18 | Outpatient (CLI) | payer MEDICARE, SELFPAY ==
[2023-05-31 09:00] LABS: Add Manual Diff / Slide Review NO; Basophils Absolute Auto 100 /uL (0-100); Basophils Percent Auto 0.7 % (0-2); Eosinophils Absolute Auto 400 /uL (0-450); Eosinophils Percent Auto 4.9 % (2-4); Hematocrit 41.4 % (41-53); Hemoglobin 13.8 g/dL (13.5-17.5); Lymphocytes Absolute Auto 2400 /uL (1100-4500); Lymphocytes Percent Auto 33.3 % (25-40); Mean Corpuscular HGB Conc 33.5 % (30-36); Mean Corpuscular Hemoglobin 30.8 PG (26-34); Mean Corpuscular Volume 91.9 fL (80-100); Monocytes Absolute Auto 800 /uL (0-900); Monocytes Percent Auto 10.7 % (3-14); Neutrophils Absolute Auto 3700 /uL (1500-7000); Neutrophils Percent Auto 50.4 % (50-75); Platelet Count 192 X10^3/uL (150-400); Red Cell Distribution Width 14.2 % (11.6-14.8); White Blood Cell Count 7.4 X10^3/uL (4.5-11.0)
[2023-05-31 09:04] LABS: Prothrombin Time 11.8 SECONDS (10.1-12.7)
[2023-05-31 09:16] LABS: BUN Creatinine Ratio 24.4 (6-22); Blood Urea Nitrogen 21 mg/dL (9-20); Calcium 9.1 mg/dL (8.4-10.2); Carbon Dioxide 27 mmol/L (22-32); Chloride 105 mmol/L (98-107); Estimated Glomerular Filt Rate > 60 mL/min (>60); Glucose 88 mg/dL (80-110); HEMOLYSIS < 15 (0-50); Potassium 4.4 mmol/L (3.4-5.1); Sodium 139 mmol/L (137-145)
== END ==
PROVIDERS: PCP Internal Medicine; Referring Provider Internal Medicine Clinical Cardiac Electrophysiology; Visit Provider Internal Medicine Clinical Cardiac Electrophysiology
DX: I48.92 Unspecified atrial flutter (principal)
CPT/HCPCS: 36415; 80048; 85025; 85610

== ENCOUNTER → 2023-06-05 15:47 | Outpatient (CLI) | payer MEDICARE, SELFPAY ==
--- NOTE | 2023-06-05 | DI.MRI.S_ITS ---
PROCEDURE: MR SHOULDER LT WO CON INDICATIONS: LEFT SHOULDER PAIN TECHNIQUE: Noncontrast oblique coronal T2 fast spin echo with fat saturation, oblique sagittal T1 spin echo and T2 fast spin echo with fat saturation, axial T1 spin echo and T2 fast spin echo with fat saturation through the shoulder. COMPARISON: None. FINDINGS: Image quality: Excellent. Rotator cuff: Low to moderate grade articular and bursal surface partial thickness tear involving distal supraspinatus at its insertion on the humeral head is seen is seen in to musculotendinous junction. Low-grade articular surface partial-thickness tear involving distal infraspinatus at its insertion on the humeral head is also seen. Low-grade intrasubstance partial-thickness tear is seen in distal subscapularis. No full-thickness rotator cuff tendon rupture. Sagittal images demonstrate no significant rotator cuff muscle atrophy. Bones and bursae: No bone marrow contusions or fractures. Moderate acromioclavicular joint osteoarthritic changes are seen with joint space narrowing and downward osteophyte formation depressing the musculotendinous junction of supraspinatus. Moderate glenohumeral joint osteoarthritic changes also noted with joint space narrowing, subchondral sclerosis and inferior marginal osteophyte formation. There is small amount of joint effusion and subacromial subdeltoid bursal fluid. No gross loose bodies. Capsule and soft tissues: Signal abnormality and contour irregularity involving anterior inferior labrum at 4 to 6 o'clock position is seen suggestive of extensive anterior inferior labral tear. The long head of the biceps tendon demonstrates normal location and morphology. The rotator interval appears normal, without fibrosis. The coracohumeral ligament is normal in thickness. IMPRESSION: 1. Low to moderate grade articular and bursal surface partial thickness tear involving distal supraspinatus extending to musculotendinous junction. Low-grade articular surface partial-thickness tear involving distal infraspinatus. Low-grade intrasubstance partial-thickness tear involving distal subscapularis. No full-thickness rotator cuff tendon rupture. 2. Moderate acromioclavicular joint and glenohumeral joint osteoarthritis. No fracture or dislocation. Small amount of joint effusion and subacromial subdeltoid bursal fluid. No loose bodies. 3. Suggestion of anterior-inferior labral tear at 4 to 6 o'clock position. Dictated by: Guillermo Zapata M.D. on 06/06/2023 at 10:46 Approved by: Guillermo Zapata M.D. on 06/06/2023 at 11:02
== END ==
PROVIDERS: PCP Internal Medicine; Referring Provider Orthopaedic Surgery; Visit Provider Orthopaedic Surgery
DX: M75.112 Incomplete rotator cuff tear or rupture of left shoulder, not specified as traumatic (principal); M19.012 Primary osteoarthritis, left shoulder; M25.412 Effusion, left shoulder
CPT/HCPCS: 73221

== ENCOUNTER → 2023-11-18 07:07 | Outpatient (CLI) | payer MEDICARE, SELFPAY ==
[2023-11-18 07:52] LABS: Hematocrit 42.6 % (41-53); Hemoglobin 14.4 g/dL (13.5-17.5); Mean Corpuscular HGB Conc 33.7 % (30-36); Mean Corpuscular Hemoglobin 31.4 PG (26-34); Mean Corpuscular Volume 93.1 fL (80-100); Platelet Count 167 X10^3/uL (150-400); Red Blood Cell Count 4.58 X10^6/uL (4.5-5.9); Red Cell Distribution Width 14.9 % (11.6-14.8); White Blood Cell Count 6.5 X10^3/uL (4.5-11.0)
[2023-11-18 08:15] LABS: Alanine Aminotransferase 29 IU/L (<50); Albumin 4.3 g/dL (3.5-5.0); Albumin Globulin Ratio 1.6 (1.0-2.8); Alkaline Phosphatase 81 U/L (38-126); Aspartate Aminotransferase 35 IU/L (17-59); BUN Creatinine Ratio 23.5 (6-22); Bilirubin Total 0.8 mg/dL (0.2-1.3); Blood Urea Nitrogen 20 mg/dL (9-20); Calcium 9.7 mg/dL (8.4-10.2); Carbon Dioxide 29 mmol/L (22-32); Chloride 105 mmol/L (98-107); Cholesterol 114 mg/dL (140-199); Estimated Glomerular Filt Rate > 60 mL/min (>60); Globulin 2.7 g/dL (1.7-4.1); Glucose 90 mg/dL (80-110); HDL Cholesterol 50 mg/dL (40-60); HEMOLYSIS < 15 (0-50); LDL Cholesterol Calculated 47 mg/dL (<100); Sodium 140 mmol/L (137-145); Triglycerides 87 mg/dL (35-150)
[2023-11-18 08:40] LABS: Prostate Specific Antigen 3.44 ng/mL (0.10-4.00)
== END ==
LOC: LAB 07:07
PROVIDERS: PCP Internal Medicine; Referring Provider Internal Medicine; Visit Provider Internal Medicine
DX: N40.1 Benign prostatic hyperplasia with lower urinary tract symptoms (principal); N13.8 Other obstructive and reflux uropathy; E78.2 Mixed hyperlipidemia; I25.10 Atherosclerotic heart disease of native coronary artery without angina pectoris
CPT/HCPCS: 36415; 80053; 80061; 84153; 85027

== ENCOUNTER → 2024-01-06 07:12 | Outpatient (CLI) | payer MEDICARE, SELFPAY ==
[2024-01-06 08:27] LABS: Cholesterol 100 mg/dL (140-199)
[2024-01-08 16:43] LABS: Cholesterol 99 mg/dL (140-199); HDL Cholesterol 51 mg/dL (40-60); LDL Cholesterol Calculated 34 mg/dL (<100); Triglycerides 68 mg/dL (35-150)
== END ==
PROVIDERS: PCP Internal Medicine; Referring Provider Internal Medicine; Visit Provider Internal Medicine
DX: E78.2 Mixed hyperlipidemia (principal); I10 Essential (primary) hypertension
CPT/HCPCS: 36415; 80061; 82465

== ENCOUNTER 2024-01-22 14:15 | Outpatient (RCR) | payer MEDICARE, SELFPAY | END 2024-01-22 16:15 | LOC: CAR 14:15 | PROVIDERS: PCP Internal Medicine; Referring Provider Internal Medicine Interventional Cardiology; Visit Provider Internal Medicine Interventional Cardiology | DX: Z95.5 Presence of coronary angioplasty implant and graft (principal) | CPT/HCPCS: 93798 ==

== ENCOUNTER → 2024-02-06 15:36 | Outpatient (CLI) | payer MEDICARE, SELFPAY ==
--- NOTE | 2024-02-06 15:37 | DI.US.S_ITS ---
PROCEDURE: US CAROTID DOPPLER BI INDICATIONS: BRUIT OF RIGHT CAROTID ARTERY TECHNIQUE: Color and pulse Doppler interrogation was performed of both carotid systems, with image documentation and velocity measurements. COMPARISON: None. FINDINGS: Stenosis calculations are based on SRU (Society of Radiologists in Ultrasound) criteria. Right side: Brachial blood pressure: 134 mm Hg. Common carotid artery peak systolic velocity: 71 cm/sec. Internal carotid artery peak systolic velocity: 83 cm/sec. Internal carotid artery end diastolic velocity: 14 cm/sec. External carotid artery peak systolic velocity: 90 cm/sec. ICA/CCA peak systolic ratio: 0.9 . Cantu scale imaging description: No significant atherosclerotic plaque Percent internal carotid artery stenosis: Normal . Vertebral artery: Flow direction is antegrade. Left side: Brachial blood pressure: 137 mm Hg. Common carotid artery peak systolic velocity: 222 cm/sec, likely secondary to turbulent flow. Internal carotid artery peak systolic velocity: 87 cm/sec. Internal carotid artery end diastolic velocity: 12 cm/sec. External carotid artery peak systolic velocity: 76 cm/sec. ICA/CCA peak systolic ratio: 0.4 . Cantu scale imaging description: Mild atherosclerotic plaque Percent internal carotid artery stenosis: Less than 50 percent stenosis. Vertebral artery: Flow direction is antegrade. IMPRESSION: 1. Normal right internal carotid artery. 2. Less than 50 percent stenosis in the left internal carotid artery. Dictated by: Ebony Maher M.D. on 02/06/2024 at 17:01 Approved by: Ebony Maher M.D. on 02/06/2024 at 17:05
== END ==
PROVIDERS: PCP Internal Medicine; Referring Provider Internal Medicine Interventional Cardiology; Visit Provider Internal Medicine Interventional Cardiology
DX: I65.22 Occlusion and stenosis of left carotid artery (principal); R09.89 Other specified symptoms and signs involving the circulatory and respiratory systems
CPT/HCPCS: 93880

== ENCOUNTER → 2024-03-30 07:09 | Outpatient (CLI) | payer MEDICARE, SELFPAY ==
[2024-03-30 08:44] LABS: Cholesterol 116 mg/dL (140-199); HDL Cholesterol 59 mg/dL (40-60); LDL Cholesterol Calculated 38 mg/dL (<100); Triglycerides 97 mg/dL (35-150)
== END ==
PROVIDERS: PCP Internal Medicine; Referring Provider Internal Medicine Interventional Cardiology; Visit Provider Internal Medicine Interventional Cardiology
DX: E78.49 Other hyperlipidemia (principal)
CPT/HCPCS: 36415; 80061

== ENCOUNTER 2024-06-29 07:02 | Day surgery (SDC) | payer MEDICARE, SELFPAY ==
[2024-06-29 07:38] VITALS: BP 144/74; PULSE 69; RESP 16; TEMP 36.8; O2SAT 97
[2024-06-29] MEDS: LACTATED RINGERS 1,000 ML 42 ML IV (07:43)
--- NOTE | 2024-06-29 07:58 | P.HP_ITS ---
History of Present Illness History of Present Illness Date Patient Seen: 06/29/24 Time Patient Seen: 07:58 Chief complaint: Colonoscopy Narrative: 84-year-old here for colon polyp surveillance. He has a history of anal fissure and some hemorrhoids. I reviewed the recent office note with Dr. Villegas. No changes. [facility] Medical History IT band syndrome Coronary artery disease BPH w urinary obs/LUTS Polyneuropathy Generalized anxiety disorder History of colon polyps Mixed hyperlipidemia Essential hypertension Osteoarthritis (~2014) Bronchiectasis (~2020) Allergies (~1954) Restless leg syndrome (~1999) Chronic back pain (~2021) Chicken pox (~1946) Cataracts, bilateral (~2015) History of elevated PSA (~1977) GERD (gastroesophageal reflux disease) (~2016) Colon polyps (~1999) Atrial fibrillation (~2012) Chronic cough (~2011) Asthma (~2011) Surgical History Anesthesia History of thoracotomy (~1964) History of colonoscopy History of cataract surgery (~2017) History of partial knee replacement (~2016) History of hemorrhoidectomy History of appendectomy (~1959) History of tonsillectomy (~1946) Family History Father History of heart disease Mother Stroke Brother Lung cancer Prostate cancer Hyperlipidemia Hypertension Social History household members: spouse Smoking Status: Former smoker alcohol intake: current Meds Home Medications and Allergies Home Medications Medication Instructions Recorded Confirmed Type fexofenadine 180 mg tablet 180 mg PO DAILY PRN Allergic 03/21/13 05/05/24 History Symptoms ##0 melatonin 5 mg tablet 5 mg PO BEDTIME PRN Insomnia ##0 12/17/18 05/05/24 History multivitamin 1 tab PO DAILY ##0 12/17/18 05/05/24 History ascorbic acid (vitamin C) 1,000 mg 1,000 mg PO DAILY 05/21/22 05/05/24 History tablet cholecalciferol (vitamin D3) 25 25 mcg PO DAILY 05/21/22 05/05/24 History mcg (1,000 unit) capsule amlodipine 10 mg tablet 10 mg PO DAILY 08/13/22 06/29/24 History metoprolol succinate 25 mg 25 mg PO DAILY #90 tabs 09/10/22 05/05/24 Rx tablet,extended release 24 hr sildenafil 25 mg tablet 100 mg (4 x 25 mg) PO .COMPLEX PRN 01/11/23 05/05/24 Rx sexual activity #50 tabs metronidazole 0.75 % topical cream 1 applic topical BID PRN 03/25/23 05/05/24 History fluticasone propionate 110 1 puff inhalation BID #12 grams 05/10/23 06/29/24 Rx mcg/actuation HFA aerosol inhaler (Flovent HFA) lisinopril 40 mg tablet 40 mg PO DAILY #90 tabs 11/04/23 06/29/24 Rx lorazepam 0.5 mg tablet (Ativan) 0.5 mg PO BEDTIME PRN Insomnia #90 11/04/23 06/29/24 Rx tabs alirocumab 75 mg/mL subcutaneous 75 mg SUBCUT Q2W 11/13/23 05/05/24 History pen injector (Praluent Pen) aspirin 81 mg tablet,delayed 81 mg PO DAILY Heart stents 11/13/23 06/29/24 History release (Enteric Coated Aspirin) amoxicillin 500 mg capsule 500 mg PO TID #30 caps 12/27/23 06/29/24 Rx Allergies Allergy/AdvReac Type Severity Reaction Status Date / Time formoterol [FORMOTEROL] Allergy Intermediate patient Verified 06/29/24 07:28 states it gave him a-fib budesonide [BUDESONIDE] AdvReac Intermediate patient Verified 06/29/24 07:28 states it gave him a-fib pseudoephedrine AdvReac Unknown gave pt Verified 06/29/24 07:28 [From Sudafed] afib Isyswyq-ZNV-WhK Reductase AdvReac Unknown muscle Verified 06/29/24 07:28 Inhibitor pains [Geogblp-Xkm-Nxo Reductase Inhibitor] Review of Systems Review of Systems ROS: Yes All systems reviewed with the patient and are negative except as otherwise documented Exam Vital Signs (past 8 hours): - 06/29/24 07:38 Temperature 98.2 F Pulse Rate 69 Respiratory Rate 16 Blood Pressure 144/74 H Pulse Oximetry 97 Oxygen Delivery Method Room Air Oxygen Delivery Method Room Air Const General: cooperative HENMT Head: normal to inspection Eyes General: appearance normal, both eyes and all related structures Neck Neck: normal visual inspection Chest Chest: normal inspection of the chest Resp Effort & Inspection: normal respiratory effort Cardio Rate: regular rate GI Inspection: normal to inspection Skin General: no rashes or lesions noted Neuro General: patient alert and patient awake Extrem General: normal to inspection and no pedal edema Psych Appearance: grossly normal Assessment & Plan Assessment & Plan narrative: 84-year-old male with a personal history of colon polyps, hemorrhoids, and anal fissure. Colonoscopy is pursued today. Time-Based Coding :: [TOTAL MINUTES] spent with patient and on the chart (including review of chart, obtaining history, exam, reviewing outside data, placing orders, documenting exam and treatment plan, and counseling patient) on [DATE].
--- NOTE | 2024-06-29 08:00 | PM.PREOP ---
Pre-operative Note Interval Note History & Physical reviewed/Exam performed by Physician: Yes Changes to H&P: No ASA Class (for procedural sedation): III
--- NOTE | 2024-06-29 08:32 | P.OP.COLON_ITS ---
Operative Date/Time/Diagnoses Date of procedure: 06/29/24 Time of procedure: 08:32 Pre-op diagnosis: Personal history of colon polyps, hemorrhoids, anal fissure Post-op diagnosis: same Procedure & Clinicians Study performed: Colonoscopy Same procedure as scheduled: Yes Indications: Personal history of colon polyps, hemorrhoids, anal fissure Surgeon: Juarez George Procedure Notes SCOAP/Timeout: Done Procedure in detail: After the risks and benefits were explained, written and verbal informed consent was obtained. The patient was brought into the procedure room and placed into the left lateral decubitus position. Please see anesthesia notes for sedation details. Digital rectal examination was accomplished. The scope was introduced into the patient and advanced under direct visualization to the cecum as iden tified by the appendiceal orifice and ileocecal valve. The scope was slowly withdrawn to carefully examine the mucosa for any defects or lesions. Comprehensive imaging was accomplished throughout the rectum including the dentate line. The colon was decompressed, the scope was then removed from the patient who tolerated the procedure well. Pediatric colonoscope Bowel prep adequate Scope withdrawal time: 10 minutes Sedation minutes: 19 Specimen(s): none sent Complications: none Impression: The patient had evidence of grade 3 and grade 4 nonbleeding nonthrombosed hemorrhoids. There was only 1 column of grade 4 hemorrhoids it did not reduce with digital manipulation. The anal sphincter mechanism was moderately relaxed. I did not see any evidence of active fissure. The patient had a moderately redundant colon. No significant polyps mass lesions or inflammatory features identified throughout. Mild diverticulosis was noted in the left colon. Endoscopic diagnosis 1. Grade 3 to grade 4 hemorrhoids 2. Redundant colon 3. Mild left colon diverticulosis Post-procedure Plan for aftercare: 1. Intermittent warm Epsom salt baths as needed for hemorrhoidal engorgement. 2. Fiber based bowel regimen for soft regular stools. 3. Follow up GI clinic for any ongoing hemorrhoid or fissure concerns in the future. Disposition: PACU
[2024-06-29 08:35] VITALS: BP 103/67; PULSE 56; RESP 12; TEMP 36.4; O2SAT 97
[2024-06-29 08:40] VITALS: BP 101/67; PULSE 55; RESP 12; O2SAT 97
[2024-06-29 08:45] VITALS: BP 97/73; PULSE 62; RESP 16; O2SAT 97
[2024-06-29 08:52] VITALS: BP 119/79; PULSE 59; RESP 16; TEMP 36.6; O2SAT 99
[2024-06-29 09:01] VITALS: BP 125/74; PULSE 57; RESP 16; O2SAT 99
== END 2024-06-29 09:07 | disposition home or self-care (01) ==
PROVIDERS: PCP Internal Medicine; Referring Provider Internal Medicine Gastroenterology; Visit Provider Internal Medicine Gastroenterology
PROC: 0DJD8ZZ Inspection of Lower Intestinal Tract, Via Natural or Artificial Opening Endoscopic (ICD-10-PCS; CPT 45378; principal; 2024-06-29 08:00)
DX: Z12.11 Encounter for screening for malignant neoplasm of colon (principal); Z86.010 Personal history of colon polyps; K64.2 Third degree hemorrhoids; K57.30 Diverticulosis of large intestine without perforation or abscess without bleeding
CPT/HCPCS: G0105; J2704

== ENCOUNTER 2024-10-27 06:38 | Day surgery (SDC) | payer MEDICARE, SELFPAY ==
[2024-10-21 10:26] VITALS: BMI 23.8
--- NOTE | 2024-10-27 07:24 | EKG_ITS ---
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
[2024-10-27 07:25] VITALS: BP 134/78; PULSE 61; RESP 16; TEMP 37.1; O2SAT 95
[2024-10-27] MEDS: ACETAMINOPHEN 325 MG TABLET 975 MG PO (07:33)
[2024-10-27] MEDS: SODIUM CHLORIDE 0.9% 1,000 ML 84 ML IV (07:34)
--- NOTE | 2024-10-27 07:40 | PM.PREOP ---
Pre-operative Note COVID-19 COVID-19 status: Not tested Interval Note History & Physical reviewed/Exam performed by Physician: Yes Changes to H&P: No ASA Class (for procedural sedation): II
--- NOTE | 2024-10-27 08:17 | SUR.OPER ---
Lithotomy on padded OR bed, head on pillow, arms secured on padded arm boards at <90 degrees abduction. Legs secured in padded yellow fins stirrups.
[2024-10-27 08:23] VITALS: BP 84/53; PULSE 66; RESP 18; TEMP 37.1; O2SAT 99
[2024-10-27] MEDS: ONABOTULINUMTOXINA 100 UNIT VIAL 40 UNIT INJ (08:25)
--- NOTE | 2024-10-27 08:28 | PM.OP.1 ---
Operative Date/Time/Diagnoses Date of procedure: 10/27/24 Time of procedure: 08:28 Pre-op diagnosis: Fissure and internal hemorrhoids Post-op diagnosis: same Procedure & Clinicians Procedure: Examination under anesthesia Botox injection into the anal sphincter Rubber-band ligation of 2 internal hemorrhoidal columns Same procedure as scheduled: Yes Surgeon: Conrado Wilcox Anesthesia Type: MAC +/- Operative Notes Procedure in detail: The patient was brought to the operating room and placed in the table in the supine position. Monitored anesthesia was induced. He was positioned in lithotomy and the perineum was prepped and draped in the usual fashion. A time-out was performed. A digital rectal exam was performed with a well lubricated finger. The Hill-Upton retractor was inserted and the anus was examined. There appeared to be a small healing posterior midline fissure. There were circumferential internal hemorrhoids. We injected 20 units of botulinum toxin into the sphincter on the left and again on the right side for a total 40 minutes. We then perform rubber-band ligation of left lateral and right anterior hemorrhoidal columns. The patient was awakened and brought to recovery room. EBL: 0 Specimens: None Post-operative Condition: stable Disposition: PACU
[2024-10-27 08:35] VITALS: BP 97/60; PULSE 62; RESP 18; O2SAT 94
[2024-10-27 08:37] VITALS: BP 97/61; PULSE 65; RESP 16; TEMP 36.6; O2SAT 97
[2024-10-27 08:58] VITALS: BP 116/69; PULSE 57; RESP 14; TEMP 36.4; O2SAT 98
--- NOTE | 2024-10-31 11:13 | PM.EVENT ---
Event Note Date Patient Seen: 10/31/24 Time Patient Seen: 11:13 Event Note (Rapid Response, Code, or fall): Telephone call: patient is experiencing worsening diarrhea and incontinence since the procedure, not improving with Pepto. Advised him to take 2 Imodium now, and one every 4 hours after. Also advised him to start Psyllium, 1 dose twice per day.
== END 2024-10-27 09:09 | disposition home or self-care (01) ==
PROVIDERS: PCP Internal Medicine; Referring Provider Surgery; Visit Provider Surgery
PROC: (CPT 45990; principal; 2024-10-27 07:45)
DX: K64.8 Other hemorrhoids (principal); K60.2 Anal fissure, unspecified; I25.10 Atherosclerotic heart disease of native coronary artery without angina pectoris; N40.1 Benign prostatic hyperplasia with lower urinary tract symptoms; E78.2 Mixed hyperlipidemia; I10 Essential (primary) hypertension; I48.91 Unspecified atrial fibrillation; K21.9 Gastro-esophageal reflux disease without esophagitis; G25.81 Restless legs syndrome; J45.909 Unspecified asthma, uncomplicated; Z95.5 Presence of coronary angioplasty implant and graft; Z87.891 Personal history of nicotine dependence
CPT/HCPCS: 46505; 46221; 93005; J0585; J2704

== ENCOUNTER → 2024-11-17 11:53 | Outpatient (CLI) | payer MEDICARE, SELFPAY ==
[2024-11-17 12:14] LABS: Hemoglobin 14.6 g/dL (13.5-17.5); Mean Corpuscular Hemoglobin 31.6 PG (26-34); Mean Corpuscular Volume 92.9 fL (80-100); Platelet Count 202 X10^3/uL (150-400); Red Blood Cell Count 4.62 X10^6/uL (4.5-5.9); White Blood Cell Count 6.1 X10^3/uL (4.5-11.0)
[2024-11-17 12:41] LABS: Alanine Aminotransferase 30 IU/L (<50); Albumin 4.5 g/dL (3.5-5.0); Alkaline Phosphatase 86 U/L (38-126); Aspartate Aminotransferase 38 IU/L (17-59); BUN Creatinine Ratio 21.6 (6-22); Bilirubin Total 0.5 mg/dL (0.2-1.3); Blood Urea Nitrogen 21 mg/dL (9-20); Calcium 9.8 mg/dL (8.4-10.2); Carbon Dioxide 28 mmol/L (22-32); Chloride 103 mmol/L (98-107); Cholesterol 131 mg/dL (140-199); Estimated Glomerular Filt Rate > 60 mL/min (>60); Globulin 2.3 g/dL (1.7-4.1); Glucose 95 mg/dL (80-110); HDL Cholesterol 51 mg/dL (40-60); HEMOLYSIS < 15 (0-50); LDL Cholesterol Calculated 57 mg/dL (<100); Sodium 138 mmol/L (137-145); Total Protein 6.8 g/dL (6.3-8.2); Triglycerides 116 mg/dL (35-150)
[2024-11-17 13:12] LABS: Prostate Specific Antigen 3.97 ng/mL (0.10-4.00)
== END ==
PROVIDERS: PCP Internal Medicine; Referring Provider Internal Medicine; Visit Provider Internal Medicine
DX: N13.8 Other obstructive and reflux uropathy (principal); E78.2 Mixed hyperlipidemia; N40.1 Benign prostatic hyperplasia with lower urinary tract symptoms; I10 Essential (primary) hypertension
CPT/HCPCS: 36415; 80053; 80061; 84153; 85027

== ENCOUNTER → 2025-02-08 07:09 | Outpatient (CLI) | payer MEDICARE, SELFPAY ==
[2025-02-08 08:24] LABS: Cholesterol 134 mg/dL (140-199); HDL Cholesterol 53 mg/dL (40-60); LDL Cholesterol Calculated 63 mg/dL (<100); Triglycerides 92 mg/dL (35-150)
== END ==
PROVIDERS: PCP Internal Medicine; Referring Provider Internal Medicine Interventional Cardiology; Visit Provider Internal Medicine Interventional Cardiology
DX: E78.2 Mixed hyperlipidemia (principal)
CPT/HCPCS: 36415; 80061

== ENCOUNTER 2025-05-01 03:11 | Observation (INO) | payer MEDICARE, SELFPAY ==
[2025-05-01] VITALS (27 sets, daily range): BP systolic 91–163; BP diastolic 58–110; PULSE 70–155; RESP 11–25; TEMP 36.1–36.9; O2SAT 94–99; BMI 23.4
--- NOTE | 2025-05-01 03:12 | EKG_ITS ---
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
--- NOTE | 2025-05-01 03:16 | ED.CHESTPAIN ---
HPI - Chest Pain General Chief Complaint: Arrhythmia/Palpitations Stated Complaint: Chest Pressure, palpitations Time Seen by Provider: 05/01/25 03:16 History of Present Illness HPI narrative: 85-year-old gentleman history of atrial fibrillation, flutter, status post ablation, off Eliquis and brilinta now on asa only, [id number], dyslipidemia, hypertension presents with heart palpation, and chest pressure after waking up to go urinate this morning. Pt was previously on metoprolol 25mg PO BID then switched to metoprolol 25mg Extended Release and 3-4 months ago taken off it completely by radiographer technologist. He denies fever, chills, nausea, vomiting, diaphoresis, radiating symptoms, leg pain or swelling. He did take one metoprolol 25mg Po prior to arrival but is still symptomatic. Other than what is stated, 14 pt ROS is negative. Related Data Home Medications ?Medication ?Instructions ?Recorded ?Confirmed fexofenadine 180 mg tablet 180 mg PO DAILY PRN Allergic 03/21/13 03/22/25 Symptoms ##0 melatonin 5 mg tablet 5 mg PO BEDTIME PRN Insomnia ##0 12/17/18 03/22/25 multivitamin 1 tab PO DAILY ##0 12/17/18 03/22/25 ascorbic acid (vitamin C) 1,000 mg 1,000 mg PO DAILY 05/21/22 03/22/25 tablet cholecalciferol (vitamin D3) 25 25 mcg PO DAILY 05/21/22 03/22/25 mcg (1,000 unit) capsule amlodipine 10 mg tablet 10 mg PO DAILY 08/13/22 03/22/25 alirocumab 75 mg/mL subcutaneous 75 mg SUBCUT Q2W 11/13/23 01/27/25 pen injector (Praluent Pen) aspirin 81 mg tablet,delayed 81 mg PO DAILY Heart stents 11/13/23 03/22/25 release (Enteric Coated Aspirin) nitroglycerin 0.4 % (w/w) rectal 1 inch IN BID 09/23/24 03/22/25 ointment Previous Rx's ?Medication ?Instructions ?Recorded sildenafil 25 mg tablet 100 mg (4 x 25 mg) PO .COMPLEX PRN 07/02/24 sexual activity #50 tabs lorazepam 0.5 mg tablet (Ativan) 0.5 mg PO BEDTIME PRN Insomnia #90 08/22/24 tabs oxybutynin chloride 5 mg 5 mg PO DAILY #90 tabs 09/23/24 tablet,extended release 24 hr lisinopril 40 mg tablet 40 mg PO DAILY #90 tabs 11/17/24 azelastine 137 mcg (0.1 %) nasal 1 spray intranasal BID #30 mL 12/18/24 spray amoxicillin 500 mg capsule 500 mg PO TID #30 caps 01/27/25 Allergies Allergy/AdvReac Type Severity Reaction Status Date / Time formoterol (FORMOTEROL) Allergy Intermediate patient Verified 05/01/25 03:29 states it gave him a-fib budesonide (BUDESONIDE) AdvReac Intermediate patient Verified 05/01/25 03:29 states it gave him a-fib pseudoephedrine (From AdvReac Unknown gave pt Verified 05/01/25 03:29 Sudafed) afib Zeqxfqg-EHO-UfQ Reductase AdvReac Unknown muscle Verified 05/01/25 03:29 Inhibitor (Exfkzfr-Lqv-Tie pains Reductase Inhibitor) Review of Systems Review of Systems ROS Unobtainable: All systems reviewed & are unremarkable except as noted in HPI and below Patient History Medical History (Updated 05/01/25 @ 06:20 by Domenic Langford, DO) Fecal incontinence Diarrhea Anxiety IT band syndrome Coronary artery disease BPH w urinary obs/LUTS Polyneuropathy Generalized anxiety disorder History of colon polyps Mixed hyperlipidemia Essential hypertension Osteoarthritis (~2014) Bronchiectasis (~2020) Allergies (~1954) Restless leg syndrome (~1999) Chronic back pain (~2021) Chicken pox (~1946) Cataracts, bilateral (~2015) History of elevated PSA (~1977) GERD (gastroesophageal reflux disease) (~2016) Colon polyps (~2000) Atrial fibrillation (~2012) Chronic cough (~2011) Asthma (~2011) Surgical History Hx of heart artery stent (07/2023) Hx of eye surgery (2017) History of angioplasty (07/30/23) History of cardiac radiofrequency ablation (~06/07/23) Hx of hernia repair (02/13/95) Anesthesia History of thoracotomy (~1965) History of colonoscopy History of cataract surgery (~2017) History of partial knee replacement (~2016) History of hemorrhoidectomy (1984) History of appendectomy (~1959) History of tonsillectomy (~1947) Family History Father History of heart disease Cancer Hypertension Hyperlipidemia Mother Stroke Brother Lung cancer Prostate cancer Hyperlipidemia Hypertension Social History marital status: number of children: 1 household members: spouse alcohol intake: current caffeine: No alcohol intake frequency: 0-2 drinks per day Exam Narrative Exam Narrative: GENERAL: [85] year old patient appears stated age. Well-developed patient, in mild distress. HEAD: Atraumatic. Normocephalic. EYES: Pupils equal round and reactive. Extraocular motions intact. No scleral icterus. No injection or drainage. ENT: Nose without bleeding, purulent drainage. Throat without erythema, tonsillar hypertrophy or exudate. Airway patent. NECK: Trachea midline. Non tender CARDIOVASCULAR: Tachy and irregular rate and rhythm without murmurs, gallops, or rubs. RESPIRATORY: Clear to auscultation. Breath sounds equal bilaterally. No wheezes, rales, or rhonchi. GASTROINTESTINAL: Abdomen soft, non-tender, nondistended. EXTREMITIES: No edema or joint tenderness. BACK: Nontender without deformity or crepitance. No flank tenderness. NEURO: AOx3. SKIN: No rash or erythema of visible areas Initial Vital Signs Initial Vital Signs: Vital Signs Pulse Rate 145 H 05/01/25 03:19 Respiratory Rate 19 05/01/25 03:19 Scores HEART Score Heart Score history: Moderately Suspicious Heart Score EKG: Non-Specific repolarization disturbance Heart Score Age: > or = 65 years old Heart Score risk factors: > 3 risk factors or hx of atherosclerotic disease Heart Score troponin: < or = to normal limit Heart Score Total: 6 Course Orders Ordered: ED Orders 05/01/25 03:12 EKG-12 Lead Stat 05/01/25 03:28 XR chest 1V Stat 05/01/25 03:30 Complete Blood Count AUTO DIFF Stat Comprehensive Metabolic Panel Stat Lipase Stat Magnesium Stat NT-proBNP (BNP-Adult 18+) Stat PTT Partial Thromboplastin Sanjeev Stat Prothrombin Time INR Stat Troponin & CK Cardiac Panel Stat 05/01/25 05:30 Troponin I Stat 05/01/25 06:00 EKG-12 Lead Stat 05/01/25 06:26 TSH [Thyroid Stimulating Hormone] Stat Discontinued Medications Aspirin (Aspirin 81 Mg Chew Tab) 324 mg PO NOW ONE Stop: 05/01/25 03:29 Last Admin: 05/01/25 03:38 Dose: 324 mg Diltiazem HCl (Diltiazem 25 Mg/5 Ml Sdv) 25 mg IV NOW ONE Stop: 05/01/25 05:39 Last Admin: 05/01/25 05:45 Dose: 25 mg Metoprolol Tartrate (Metoprolol Tartrate 5 Mg/5 Ml Inj) 5 mg IV Q5M [facility] Stop: 05/01/25 03:41 Last Admin: 05/01/25 03:46 Dose: 5 mg Metoprolol Tartrate (Metoprolol Tartrate 5 Mg/5 Ml Inj) 5 mg IV Q5M [facility] Stop: 05/01/25 03:56 Last Admin: 05/01/25 03:52 Dose: Not Given Metoprolol Tartrate (Metoprolol Ir 25 Mg Tablet) 25 mg PO NOW ONE Stop: 05/01/25 04:17 Last Admin: 05/01/25 04:23 Dose: 25 mg Vital Signs Vital signs: Vital Signs - 8 hr 05/01/25 03:19 05/01/25 03:23 05/01/25 03:23 Temperature Pulse Rate 145 H 136 H Respiratory Rate 19 22 Blood Pressure 132/88 Pulse Oximetry 98 Oxygen Delivery Method 05/01/25 03:29 05/01/25 03:30 05/01/25 03:31 Temperature 97.6 F Pulse Rate 144 H 144 H Respiratory Rate 12 13 Blood Pressure 139/81 139/81 Pulse Oximetry 96 97 Oxygen Delivery Method Room Air 05/01/25 03:31 05/01/25 03:41 05/01/25 03:41 Temperature Pulse Rate 143 H 136 H Respiratory Rate 16 18 Blood Pressure 127/82 Pulse Oximetry 96 95 Oxygen Delivery Method 05/01/25 03:44 05/01/25 03:44 05/01/25 03:48 Temperature Pulse Rate 135 H Respiratory Rate 23 Blood Pressure 117/91 H 131/80 Pulse Oximetry 96 Oxygen Delivery Method 05/01/25 03:48 05/01/25 05:45 Temperature Pulse Rate 125 H 140 H Respiratory Rate 16 Blood Pressure 103/75 Pulse Oximetry 96 Oxygen Delivery Method Room Air MDM - Chest Pain Lab Data 05/01/25 03:30 05/01/25 03:30 Labs: Lab Results 05/01/25 05/01/25 Range/Units 03:30 05:30 WBC 8.1 (4.5-11.0) X10^3/uL RBC 4.88 (4.5-5.9) X10^6/uL Hgb 15.7 (13.5-17.5) g/dL Hct 45.6 (41-53) % MCV 93.5 (80-100) fL MCH 32.2 (26-34) PG MCHC 34.5 (30-36) % RDW 14.3 (11.6-14.8) % Plt Count 185 (150-400) X10^3/uL Neut % (Auto) 46.1 L (50-75) % Lymph % (Auto) 36.6 (25-40) % Ocean % (Auto) 10.7 (3-14) % Eos % (Auto) 5.3 H (2-4) % Baso % (Auto) 1.3 (0-2) % Neut # (Auto) 3700 (3545-4416) /uL Lymph # (Auto) 3000 (8504-6646) /uL Ocean # (Auto) 900 (0-900) /uL Eos # (Auto) 400 (0-450) /uL Baso # (Auto) 100 (0-100) /uL PT 9.8 (9.4-12.5) SECONDS INR 0.9 (0.9-1.3) APTT 30 (25.1-36.5) SECONDS Sodium 141 (137-145) mmol/L Potassium 3.8 (3.4-5.1) mmol/L Chloride 109 H (98-107) mmol/L Carbon Dioxide 23 (22-32) mmol/L BUN 23 H (9-20) mg/dL Creatinine 0.79 (0.66-1.25) mg/dL Estimated GFR > 60 (>60) mL/min BUN/Creatinine Ratio 29.1 H (6-22) Glucose 101 H (70-99) mg/dL Calcium 9.8 (8.4-10.2) mg/dL Magnesium 1.8 (1.6-2.3) mg/dL Total Bilirubin 0.4 (0.2-1.3) mg/dL AST 42 (17-59) IU/L ALT 29 (<50) IU/L Alkaline Phosphatase 101 (38-126) U/L Total Creatine Kinase 239 H (55-170) U/L Troponin I < 0.012 < 0.012 (0.01-0.034) ng/mL NT-Pro-B Natriuret Pep 144 (<450) pg/mL Total Protein 7.8 (6.3-8.2) g/dL Albumin 4.8 (3.5-5.0) g/dL Globulin 3.0 (1.7-4.1) g/dL Albumin/Globulin Ratio 1.6 (1.0-2.8) Lipase 134 (23-300) U/L Imaging Data Chest x-ray: Radiologist's Impression: No acute cardiopulmonary abnormality ECG Data Interpretation: Afib RVR HR 132 IN undetermined QRS [address]-t wave change Change from 10/27/24 MDM Narrative Medical decision making narrative: All labwork, vital signs, nurse triage note, previous ER visits and all imaging studies reviewed. EKG shows atrial fibrillation with rapid ventricular response heart rate 132. Patient given Lopressor 5 mg IV x 3 which slowed heart rate down from high of 148 to 120s now given metoprolol 25mg PO x 1 as heart rate went back up to 140s then given 1 dose of diltiazem 25mg IV now rate controlled 65-73 heart rate. Cxr did not show any acute process. Differential diagnosis AFib RVR, STEMI NSTEMI CHF. 2 sets of troponin are negative. EKG now rate controlled 64-72. Case discussed with who has graciously accepted pt for inpatient admission. Discharge Plan Departure Patient Disposition: Admitted as Observation Clinical Impression: Atrial fibrillation with rapid ventricular response Admit Date/Time: 05/01/25 06:27 Admit Provider: Domingo Mcgee
--- NOTE | 2025-05-01 03:28 | DI.RAD.S_ITS ---
PROCEDURE: XR CHEST 1V INDICATIONS: Chest Pain TECHNIQUE: One view of the chest was acquired. COMPARISON: None. FINDINGS: Surgical changes and devices: None. Lungs and pleura: Lungs are clear. No pleural effusions or pneumothorax. Mediastinum: Mediastinal contours appear normal. Heart size is normal. Bones and chest wall: No suspicious bony lesions. Overlying soft tissues appear unremarkable. IMPRESSION: No acute cardiopulmonary abnormality is seen. This is concordant with the preliminary interpretation. Dictated by: Laurita Monaco M.D. on 05/01/2025 at 7:59 Approved by: Laurita Monaco M.D. on 05/01/2025 at 8:00
[2025-05-01] MEDS: METOPROLOL TARTRATE 5 MG/5 ML INJ IV ×3 (03:34→03:46)
[2025-05-01] MEDS: ASPIRIN 81 MG CHEW TAB 324 MG PO (03:38)
[2025-05-01 03:39] LABS: Add Manual Diff / Slide Review NO; Hematocrit 45.6 % (41-53); Hemoglobin 15.7 g/dL (13.5-17.5); Lymphocytes Absolute Auto 3000 /uL (1100-4500); Mean Corpuscular HGB Conc 34.5 % (30-36); Mean Corpuscular Hemoglobin 32.2 PG (26-34); Mean Corpuscular Volume 93.5 fL (80-100); Platelet Count 185 X10^3/uL (150-400)
[2025-05-01 03:57] LABS: INR 0.9 (0.9-1.3); Prothrombin Time 9.8 SECONDS (9.4-12.5)
[2025-05-01 03:58] LABS: Alanine Aminotransferase 29 IU/L (<50); Albumin 4.8 g/dL (3.5-5.0); Albumin Globulin Ratio 1.6 (1.0-2.8); Alkaline Phosphatase 101 U/L (38-126); Blood Urea Nitrogen 23 mg/dL (9-20); Calcium 9.8 mg/dL (8.4-10.2); Carbon Dioxide 23 mmol/L (22-32); Chloride 109 mmol/L (98-107); Creatine Kinase 239 U/L (55-170); Estimated Glomerular Filt Rate > 60 mL/min (>60); Globulin 3.0 g/dL (1.7-4.1); Glucose 101 mg/dL (70-99); HEMOLYSIS 21 (0-50); Lipase 134 U/L (23-300); Magnesium 1.8 mg/dL (1.6-2.3); Potassium 3.8 mmol/L (3.4-5.1); Sodium 141 mmol/L (137-145); Total Protein 7.8 g/dL (6.3-8.2)
[2025-05-01 03:59] LABS: PTT Partial Thromboplastin Tim 30 SECONDS (25.1-36.5)
[2025-05-01 04:10] LABS: NT-proBNP (BNP-Adult 18+) 144 pg/mL (<450); Troponin I < 0.012 ng/mL (0.01-0.034)
[2025-05-01] MEDS: METOPROLOL IR 25 MG TABLET PO (04:23)
--- NOTE | 2025-05-01 06:00 | EKG_ITS ---
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
[2025-05-01 06:03] LABS: Troponin I < 0.012 ng/mL (0.01-0.034)
--- NOTE | 2025-05-01 06:35 | PM.HP.1 ---
History of Present Illness History of Present Illness Date Patient Seen: 05/01/25 Time Patient Seen: 06:36 Chief complaint: Chest Pressure, palpitations Narrative: 85-year-old male with past medical history of A-fib currently only on aspirin, status post ablation, coronary disease status post 2 stents, dyslipidemia and hypertension presents with palpitation. Per the patient's report, the patient was ambulating at home when he started to have palpitation. The patient stated that he is compliant to taking his metoprolol at home. Previously the patient was on Eliquis but switched to Brilinta after he received 2 stents for coronary artery disease. The patient then was switched back to aspirin and has been off of Eliquis and Brilinta. The patient otherwise denies any fever, chills, nausea, vomiting, diarrhea, chest pain or shortness of breath. In the emergency room, the patient was hemodynamic stable the heart rate was in the 130s to 140 A-fib with RVR. The patient initially received 2 doses of metoprolol IV push which improved the heart rate to the 120s. Finally the patient was given a diltiazem IV push and heart rate dropped and improved to the 60s to 70. The patient remained hemodynamically stable per ER physician. Labs were relatively benign. TSH pending. Tropes were negative. Chest x-ray shows no acute pathology. 1 dose of Eliquis given. [facility] Medical History (Updated 05/01/25 @ 06:20 by Domenic Langford, ) Fecal incontinence Diarrhea Anxiety IT band syndrome Coronary artery disease BPH w urinary obs/LUTS Polyneuropathy Generalized anxiety disorder History of colon polyps Mixed hyperlipidemia Essential hypertension Osteoarthritis (~2014) Bronchiectasis (~2020) Allergies (~1954) Restless leg syndrome (~1999) Chronic back pain (~2021) Chicken pox (~1946) Cataracts, bilateral (~2015) History of elevated PSA (~1977) GERD (gastroesophageal reflux disease) (~2016) Colon polyps (~1999) Atrial fibrillation (~2012) Chronic cough (~2011) Asthma (~2011) Surgical History Hx of heart artery stent (07/2023) Hx of eye surgery (2017) History of angioplasty (07/30/23) History of cardiac radiofrequency ablation (~06/07/23) Hx of hernia repair (02/13/95) Anesthesia History of thoracotomy (~1964) History of colonoscopy History of cataract surgery (~2017) History of partial knee replacement (~2016) History of hemorrhoidectomy (1984) History of appendectomy (~1959) History of tonsillectomy (~1947) Family History Father History of heart disease Cancer Hypertension Hyperlipidemia Mother Stroke Brother Lung cancer Prostate cancer Hyperlipidemia Hypertension Social History marital status: number of children: 1 household members: spouse Smoking Status: Former smoker alcohol intake: current caffeine: No Meds Home Medications and Allergies Home Medications ?Medication ?Instructions ?Recorded ?Confirmed ?Type fexofenadine 180 mg tablet 180 mg PO DAILY PRN Allergic 03/21/13 03/22/25 History Symptoms ##0 melatonin 5 mg tablet 5 mg PO BEDTIME PRN Insomnia ##0 12/17/18 03/22/25 History multivitamin 1 tab PO DAILY ##0 12/17/18 03/22/25 History ascorbic acid (vitamin C) 1,000 mg 1,000 mg PO DAILY 05/21/22 03/22/25 History tablet cholecalciferol (vitamin D3) 25 25 mcg PO DAILY 05/21/22 03/22/25 History mcg (1,000 unit) capsule amlodipine 10 mg tablet 10 mg PO DAILY 08/13/22 03/22/25 History alirocumab 75 mg/mL subcutaneous 75 mg SUBCUT Q2W 11/13/23 01/27/25 History pen injector (Praluent Pen) aspirin 81 mg tablet,delayed 81 mg PO DAILY Heart stents 11/13/23 03/22/25 History release (Enteric Coated Aspirin) sildenafil 25 mg tablet 100 mg (4 x 25 mg) PO .COMPLEX PRN 07/02/24 03/22/25 Rx sexual activity #50 tabs lorazepam 0.5 mg tablet (Ativan) 0.5 mg PO BEDTIME PRN Insomnia #90 08/22/24 03/22/25 Rx tabs nitroglycerin 0.4 % (w/w) rectal 1 inch RI BID 09/23/24 03/22/25 History ointment oxybutynin chloride 5 mg 5 mg PO DAILY #90 tabs 09/23/24 03/22/25 Rx tablet,extended release 24 hr lisinopril 40 mg tablet 40 mg PO DAILY #90 tabs 11/17/24 03/22/25 Rx azelastine 137 mcg (0.1 %) nasal 1 spray intranasal BID #30 mL 12/18/24 03/22/25 Rx spray amoxicillin 500 mg capsule 500 mg PO TID #30 caps 01/27/25 03/22/25 Rx Allergies Allergy/AdvReac Type Severity Reaction Status Date / Time formoterol (FORMOTEROL) Allergy Intermediate patient Verified 05/01/25 03:29 states it gave him a-fib budesonide (BUDESONIDE) AdvReac Intermediate patient Verified 05/01/25 03:29 states it gave him a-fib pseudoephedrine (From AdvReac Unknown gave pt Verified 05/01/25 03:29 Sudafed) afib Ywnjirz-WVL-ObT Reductase AdvReac Unknown muscle Verified 05/01/25 03:29 Inhibitor (Kbrspti-Ier-Qlx pains Reductase Inhibitor) Review of Systems Review of Systems ROS: Yes All systems reviewed with the patient and are negative except as otherwise documented Exam Vital Signs (past 8 hours): - 05/01/25 03:19 05/01/25 03:23 05/01/25 03:23 Temperature Pulse Rate 145 H 136 H Respiratory Rate 19 22 Blood Pressure 132/88 Pulse Oximetry 98 Oxygen Delivery Method 05/01/25 03:29 05/01/25 03:30 05/01/25 03:31 Temperature 97.6 F Pulse Rate 144 H 144 H Respiratory Rate 12 13 Blood Pressure 139/81 139/81 Pulse Oximetry 96 97 Oxygen Delivery Method Room Air 05/01/25 03:31 05/01/25 03:41 05/01/25 03:41 Temperature Pulse Rate 143 H 136 H Respiratory Rate 16 18 Blood Pressure 127/82 Pulse Oximetry 96 95 Oxygen Delivery Method 05/01/25 03:44 05/01/25 03:44 05/01/25 03:48 Temperature Pulse Rate 135 H Respiratory Rate 23 Blood Pressure 117/91 H 131/80 Pulse Oximetry 96 Oxygen Delivery Method 05/01/25 03:48 05/01/25 05:45 Temperature Pulse Rate 125 H 140 H Respiratory Rate 16 Blood Pressure 103/75 Pulse Oximetry 96 Oxygen Delivery Method Room Air Oxygen Delivery Method Room Air Narrative Exam Narrative: Physical Exam: GENERAL: The patient is not in any acute distressed. Awake and alert. HEENT: Nonicteric sclerae, PERRLA, EOMI. Oropharynx clear. Moist mucous membranes. Conjunctivae appear well perfused. HEART: Regular rate and irreg rhythm without murmurs. No lower extremities edema. LUNGS: Clear to auscultation bilaterally. No wheezing, crackles or rhonchi ABDOMEN: Soft, positive bowel sounds, nontender. SKIN: No rash, no excessive bruising, petechiae, or purpura. NEUROLOGIC: AxO x 3. Cranial nerves II-XII intact without motor/sensory deficit. Objective Labs 05/01/25 03:30 05/01/25 03:30 Labs: Laboratory Results - last 24 hr 05/01/25 05/01/25 03:30 05:30 WBC 8.1 RBC 4.88 Hgb 15.7 Hct 45.6 MCV 93.5 MCH 32.2 MCHC 34.5 RDW 14.3 Plt Count 185 Neut % (Auto) 46.1 L Lymph % (Auto) 36.6 Walker % (Auto) 10.7 Eos % (Auto) 5.3 H Baso % (Auto) 1.3 Neut # (Auto) 3700 Lymph # (Auto) 3000 Walker # (Auto) 900 Eos # (Auto) 400 Baso # (Auto) 100 PT 9.8 INR 0.9 APTT 30 Sodium 141 Potassium 3.8 Chloride 109 H Carbon Dioxide 23 BUN 23 H Creatinine 0.79 Estimated GFR > 60 BUN/Creatinine Ratio 29.1 H Glucose 101 H Calcium 9.8 Magnesium 1.8 Total Bilirubin 0.4 AST 42 ALT 29 Alkaline Phosphatase 101 Total Creatine Kinase 239 H Troponin I < 0.012 < 0.012 NT-Pro-B Natriuret Pep 144 Total Protein 7.8 Albumin 4.8 Globulin 3.0 Albumin/Globulin Ratio 1.6 Lipase 134 Assessment & Plan Assessment & Plan narrative: A-fib with RVR. Admit the patient to medical telemetry under observation.The patient initially received 2 doses of metoprolol IV push which improved the heart rate to the 120s. Finally the patient was given a diltiazem IV push and heart rate dropped and improved to the 60s to 70. Will resume home oral metoprolol twice daily. With as needed IV metoprolol as needed. If patient still return to RVR will consider diltiazem drip. TSH pending will follow. If no recent echo done will also need echo ordered. Will also continue Eliquis since patient has been off Eliquis since his cardiac stent due to initiation of Brilinta (now off) Coronary disease status post stent placement. Resume aspirin. Patient denies any chest pain. Troponin negative. Hypertension. Monitor blood pressure and resume home medication accordingly. DVT prophylaxis Eliquis. CODE STATUS full code. Disposition likely home in 1 to 2 days. - As the provider of this telehealth evaluation, requested by the patient's evaluating physician, I attest that I introduced myself to the patient, provided my credentials and determined that telemedicine via a real-time, 2 way interactive audio and video platform is an appropriate and effective means of providing this service. - I reviewed the patient's chart and had a discussion with the member of the patient's treatment team. - The patient and I mutually agreed with continuation of this evaluation via telemedicine. The patient consented for the telemedicine evaluation. - This virtual encounter was taken place from [place] by Dr. Domingo Mcgee. The patient was evaluated at [facility]. The encounter was approximately 35 minutes. The nurse was present during the entire time of the encounter and was able to move the stethoscope in appropriate directions. Time-Based Coding :: [TOTAL MINUTES] spent with patient and on the chart (including review of chart, obtaining history, exam, reviewing outside data, placing orders, documenting exam and treatment plan, and counseling patient) on [DATE].
[2025-05-01] MEDS: APIXABAN 5 MG TABLET PO (06:37)
[2025-05-01 07:16] LABS: Thyroid Stimulating Hormone 4.34 uIU/mL (0.47-4.68)
[2025-05-01] MEDS: METOPROLOL ER 25 MG TABLET PO (08:56)
[2025-05-01] MEDS: ASPIRIN EC 81 MG TABLET PO (08:56)
--- NOTE | 2025-05-01 09:31 | DI.ECHO.S_ITS ---
[facility] : : [address] : : [place] : : [id number] : : Phone: [phone] Echocardiogram Report + + :Name: IGOR CRAFT Study Date: 05/01/2025 Height: 68 in : :[facility] ReadingLocation: Weight: 154 lb: : Gender: Male BSA: 1.8 m2 : :: 1940 Age: 85 yrs : :Reason For Study: A FIB W/ RVR : :Ordering Physician: LEIGHANN, : :[place] Performed By: Jack aMndujano : :Referring: HOUSTON LAWTON : + + Interpretation Summary The study quality was technically difficult. The patient was in atrial fibrillation with heart rates between 76-144 bpm during the exam. Significant [id number] variability. Left ventricular ejection fraction is estimated to be 50 +/- 5%. Diastolic function could not be accurately assessed due to atrial fibrillation. The right ventricle is normal size. Right ventricular systolic function is mildly reduced. The right ventricular systolic pressure is estimated to be at least 23 mmHg based on an estimated right atrial pressure of 3 mm Hg. The aortic root is mildly dilated. Possible decrease in systolic function compared to the prior study 04/12/2022. Consider repeat study with heart rate and/or rhythm control to reassess biventricular systolic function. Procedure: A two-dimensional transthoracic echocardiogram with color flow and Doppler was performed. The study quality was technically difficult. Comparison is made with the echocardiogram of 04/12/22. The patient was in atrial fibrillation with heart rates between 76-144 bpm during the exam. Left Ventricle: The left ventricle is normal in size. There is normal left ventricular wall thickness. There is no ventricular septal defect visualized. Left ventricular ejection fraction is estimated to be 50 +/- 5%. Diastolic function could not be accurately assessed due to atrial fibrillation. Right Ventricle: The right ventricle is normal size. Right ventricular systolic function is mildly reduced. Atria: The left atrial size is normal. Right atrial size is normal. There is no Doppler evidence for an interatrial shunt. Mitral Valve: The mitral valve leaflets are mildly calcified. There is trace mitral regurgitation. Aortic Valve: The aortic valve is trileaflet. The aortic valve is slightly calcified. The aortic valve opens well. There is no aortic valve stenosis. No aortic regurgitation is present. Tricuspid Valve: The tricuspid valve leaflets are thin and pliable. There is trace tricuspid regurgitation. The right ventricular systolic pressure is estimated to be at least 23 mmHg based on an estimated right atrial pressure of 3 mm Hg. Pulmonic Valve: The pulmonic valve leaflets are thin and pliable; valve motion is normal. There is no pulmonic valvular regurgitation. Great Vessels: The aortic root is mildly dilated. The dimensions of the ascending aorta are normal. The pulmonary artery is normal size. The IVC is of normal diameter and collapses greater than 50% with a sniff. This suggests a low right atrial pressure of 3 mm Hg. Pericardium/ Pleura There is no pericardial effusion. There is no pleural effusion. MMode/2D Measurements & Calculations LVIDd: 3.9 cm LVOT diam: 1.9 cm LVIDs: 3.4 cm Ao root diam: 3.8 cm FS: 13.2 % asc Aorta Diam: 3.6 cm EPSS: 0.43 cm Ao Arch Diam (Prox Trans): 1.9 cm IVSd: 0.84 cm LVPWd: 0.92 cm LV caballero. diameter/BSA (cm/m^2): 2.1 LV sys. diameter/BSA (cm/m^2): 1.9 LA A2 area: 19.0 cm2 RA long axis: 5.2 cm LA A4 area: 18.2 cm2 RA area: 17.6 cm2 LA length (vol): 5.2 cm RA vol: 50.5 ml LA vol: 56.1 ml RA : 27.6 ml/m2 LA vol index: 30.7 ml/m2 IVC diam: 1.2 cm RVD1 (basal): 3.6 cm RVD2 (mid): 3.0 cm TAPSE: 1.5 cm Doppler Measurements & Calculations Ao V2 max: 121.7 cm/sec MV E max eduardo: 74.6 cm/sec Ao V2 mean: 90.2 cm/sec MV A max eduardo: 1.1 cm/sec Ao max P.9 mmHg MV E/A: 67.9 Ao mean P.5 mmHg Med Peak E' Eduardo: 6.3 cm/sec Ao V2 VTI: 21.6 cm E/E' med: 11.8 Lat Peak E' Eduardo: 10.6 cm/sec E/E' lat: 7.0 E/e' average: 9.4 MV dec time: 0.20 sec TR max eduardo: 221.2 cm/sec TR max P.6 mmHg PA V2 max: 91.5 cm/sec PA V2 mean: 62.6 cm/sec PA mean P.8 mmHg PA pr(Accel): 55.0 mmHg Reading Physician:03:10 PM
[2025-05-01 10:02] LABS: Free T4, Direct Thyroxine 0.89 ng/dL (0.78-2.19)
--- NOTE | 2025-05-01 10:06 | EKG_ITS ---
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
--- NOTE | 2025-05-01 10:43 | PM.PN.1 ---
Subjective Subjective Interval history: 83-year-old gentleman with history of AFib status post ablation, currently on aspirin therapy, coronary artery disease status post stenting, hyperlipidemia, hypertension who was admitted earlier this morning with AFib with RVR. He reports his heart rate continues to bump up to 130 when he goes to the bathroom. At rest, he gets an occasional palpitation. He did receive IV metoprolol in the emergency department as well as oral extended-release metoprolol this morning. He additionally received Eliquis in the emergency department. He denies any chest pain or shortness a breath. He is uncertain when his last echocardiogram was but does believe it was several years ago. Exam Vital Signs (past 8 hours): - 05/01/25 03:19 05/01/25 03:23 05/01/25 03:23 Temperature Pulse Rate 145 H 136 H Respiratory Rate 19 22 Blood Pressure 132/88 Pulse Oximetry 98 Oxygen Delivery Method 05/01/25 03:29 05/01/25 03:30 05/01/25 03:31 Temperature 97.6 F Pulse Rate 144 H 144 H Respiratory Rate 12 13 Blood Pressure 139/81 139/81 Pulse Oximetry 96 97 Oxygen Delivery Method Room Air 05/01/25 03:31 05/01/25 03:41 05/01/25 03:41 Temperature Pulse Rate 143 H 136 H Respiratory Rate 16 18 Blood Pressure 127/82 Pulse Oximetry 96 95 Oxygen Delivery Method 05/01/25 03:44 05/01/25 03:44 05/01/25 03:48 Temperature Pulse Rate 135 H Respiratory Rate 23 Blood Pressure 117/91 H 131/80 Pulse Oximetry 96 Oxygen Delivery Method 05/01/25 03:48 05/01/25 03:52 05/01/25 03:52 Temperature Pulse Rate 125 H 127 H Respiratory Rate 16 21 Blood Pressure 141/84 H Pulse Oximetry 96 96 Oxygen Delivery Method Room Air 05/01/25 03:57 05/01/25 03:57 05/01/25 04:00 Temperature Pulse Rate 128 H 123 H Respiratory Rate 18 20 Blood Pressure 158/110 H Pulse Oximetry 95 96 Oxygen Delivery Method 05/01/25 04:00 05/01/25 04:04 05/01/25 04:04 Temperature Pulse Rate 121 H Respiratory Rate 18 Blood Pressure 163/100 H 143/86 H Pulse Oximetry 95 Oxygen Delivery Method 05/01/25 04:30 05/01/25 04:30 05/01/25 05:00 Temperature Pulse Rate 132 H Respiratory Rate 24 Blood Pressure 114/87 122/81 Pulse Oximetry 96 Oxygen Delivery Method 05/01/25 05:00 05/01/25 05:30 05/01/25 05:30 Temperature Pulse Rate 137 H 141 H Respiratory Rate 19 19 Blood Pressure 103/75 Pulse Oximetry 95 96 Oxygen Delivery Method 05/01/25 05:45 05/01/25 06:00 05/01/25 06:00 Temperature Pulse Rate 140 H 71 Respiratory Rate 14 Blood Pressure 103/75 91/58 L Pulse Oximetry 95 Oxygen Delivery Method 05/01/25 06:30 05/01/25 06:30 05/01/25 07:00 Temperature Pulse Rate 77 79 Respiratory Rate 22 25 H Blood Pressure 105/70 Pulse Oximetry 96 97 Oxygen Delivery Method 05/01/25 07:01 05/01/25 07:01 05/01/25 07:30 Temperature Pulse Rate 78 81 Respiratory Rate 19 11 L Blood Pressure 131/72 Pulse Oximetry 94 98 Oxygen Delivery Method Room Air 05/01/25 07:30 05/01/25 08:00 05/01/25 08:00 Temperature Pulse Rate 82 Respiratory Rate 16 Blood Pressure 96/69 111/75 Pulse Oximetry 96 Oxygen Delivery Method 05/01/25 08:45 05/01/25 08:56 05/01/25 09:26 Temperature 96.9 F L Pulse Rate 70 70 125 H Respiratory Rate 15 Blood Pressure 116/89 116/89 Pulse Oximetry 99 Oxygen Delivery Method Oxygen Delivery Method Room Air Narrative Exam Narrative: GEN: Elderly male, very pleasant, Alert and oriented x 3, NAD HEENT:NC, Face symmetric CHEST: Respiratory excursions symmetric, CTAB CV: Mildly tachycardic, irregularly irregular, no M/R/G ABD: Soft, NT/ND, BT present in all 4 quadrants, no organomegaly or masses EXTR: warm, well perfused, no C/C/E SKIN: warm and dry, no rash NEURO: Alert and oriented x 3, nonfocal Objective Labs 05/01/25 03:30 05/01/25 03:30 Labs: Laboratory Results - last 24 hr 05/01/25 05/01/25 03:30 05:30 WBC 8.1 RBC 4.88 Hgb 15.7 Hct 45.6 MCV 93.5 MCH 32.2 MCHC 34.5 RDW 14.3 Plt Count 185 Neut % (Auto) 46.1 L Lymph % (Auto) 36.6 [place] % (Auto) 10.7 Eos % (Auto) 5.3 H Baso % (Auto) 1.3 Neut # (Auto) 3700 Lymph # (Auto) 3000 [place] # (Auto) 900 Eos # (Auto) 400 Baso # (Auto) 100 PT 9.8 INR 0.9 APTT 30 Sodium 141 Potassium 3.8 Chloride 109 H Carbon Dioxide 23 BUN 23 H Creatinine 0.79 Estimated GFR > 60 BUN/Creatinine Ratio 29.1 H Glucose 101 H Calcium 9.8 Magnesium 1.8 Total Bilirubin 0.4 AST 42 ALT 29 Alkaline Phosphatase 101 Total Creatine Kinase 239 H Troponin I < 0.012 < 0.012 NT-Pro-B Natriuret Pep 144 Total Protein 7.8 Albumin 4.8 Globulin 3.0 Albumin/Globulin Ratio 1.6 Lipase 134 TSH 4.34 Free T4 0.89 [facility] Medical History (Updated 05/01/25 @ 06:20 by Domenic Langford, DO) Fecal incontinence Diarrhea Anxiety IT band syndrome Coronary artery disease BPH w urinary obs/LUTS Polyneuropathy Generalized anxiety disorder History of colon polyps Mixed hyperlipidemia Essential hypertension Osteoarthritis (~2014) Bronchiectasis (~2020) Allergies (~1954) Restless leg syndrome (~1999) Chronic back pain (~2021) Chicken pox (~1946) Cataracts, bilateral (~2015) History of elevated PSA (~1977) GERD (gastroesophageal reflux disease) (~2016) Colon polyps (~2000) Atrial fibrillation (~2012) Chronic cough (~2011) Asthma (~2011) Surgical History Hx of heart artery stent (07/2023) Hx of eye surgery (2017) History of angioplasty (07/30/23) History of cardiac radiofrequency ablation (~06/07/23) Hx of hernia repair (02/13/95) Anesthesia History of thoracotomy (~1964) History of colonoscopy History of cataract surgery (~2017) History of partial knee replacement (~2016) History of hemorrhoidectomy (1984) History of appendectomy (~1960) History of tonsillectomy (~1947) Family History Father History of heart disease Cancer Hypertension Hyperlipidemia Mother Stroke Brother Lung cancer Prostate cancer Hyperlipidemia Hypertension Social History marital status: number of children: 1 household members: spouse Smoking Status: Former smoker alcohol intake: current caffeine: No Assessment & Plan Assessment & Plan narrative: 1. AFib with RVR Patient presented with AFib with RVR with symptoms of palpitations but no chest pain. He had been off of beta yoana over the last 3-4 months. He did undergo an ablation last summer. His CHADS2 Vasc score is 4, equivalent with a 4 % stroke risk annually. Plan to continue anticoagulation. He has had no significant bleeding history. Currently, his heart rate is bouncing around between the 70s and low 100s but is not sustaining. He received extended release metoprolol 25 mg approximately an hour and a half ago. He additionally received metoprolol tartrate 25 mg at 4:23 a.m. in the morning, as well as 3 IV doses of 5 mg and 25 mg of IV diltiazem. Currently his blood pressure is in the 1 teens systolic. Will defer giving any additional rate-controlling medications given he is not sustaining heart rates that are significantly tachycardic. Await echocardiogram. TSH was above 4. Will check a free T4. 2. Coronary artery disease Patient underwent stenting about a year ago. He completed 6 months of Brilinta therapy. No current cardiac symptoms. 3. Hypertension At baseline he has been on amlodipine and lisinopril. These have been held for now. He will likely require a beta yoana at discharge 4. Hyperlipidemia He uses a Praluent pen every 2 weeks. Code status Full Prophylaxis On Eliquis Disposition Home when rate is appropriately controlled Time-Based Coding :: [TOTAL MINUTES] spent with patient and on the chart (including review of chart, obtaining history, exam, reviewing outside data, placing orders, documenting exam and treatment plan, and counseling patient) on [DATE].
--- NOTE | 2025-05-01 11:41 | PC.ADMIT ---
[email or web address] [address] [place] [address] Admission Note: Pt arrived via ED stretcher to ACU room 209 at approximately 0825. Pt A&Ox4, ambulatory, SBA to BR and to bed. BP WDL, HR afib 70's-140's, labile, provider notified. Pt denies dizziness, SOB, or lightheadedness. Pt oriented to room. Call light within reach. Telemetry placed. Care ongoing. The patient,Omar Rocha,85 y/o, was given written information regarding hospital policies, unit procedures and contact persons. Patient's smoking status: Former smoker. Vital Signs - 8 hr 05/01/25 03:44 05/01/25 03:44 05/01/25 03:48 Temperature Pulse Rate 135 H Respiratory Rate 23 Blood Pressure 117/91 H 131/80 Pulse Oximetry 96 Oxygen Delivery Method 05/01/25 03:48 05/01/25 03:52 05/01/25 03:52 Temperature Pulse Rate 125 H 127 H Respiratory Rate 16 21 Blood Pressure 141/84 H Pulse Oximetry 96 96 Oxygen Delivery Method Room Air 05/01/25 03:57 05/01/25 03:57 05/01/25 04:00 Temperature Pulse Rate 128 H 123 H Respiratory Rate 18 20 Blood Pressure 158/110 H Pulse Oximetry 95 96 Oxygen Delivery Method 05/01/25 04:00 05/01/25 04:04 05/01/25 04:04 Temperature Pulse Rate 121 H Respiratory Rate 18 Blood Pressure 163/100 H 143/86 H Pulse Oximetry 95 Oxygen Delivery Method 05/01/25 04:30 05/01/25 04:30 05/01/25 05:00 Temperature Pulse Rate 132 H Respiratory Rate 24 Blood Pressure 114/87 122/81 Pulse Oximetry 96 Oxygen Delivery Method 05/01/25 05:00 05/01/25 05:30 05/01/25 05:30 Temperature Pulse Rate 137 H 141 H Respiratory Rate 19 19 Blood Pressure 103/75 Pulse Oximetry 95 96 Oxygen Delivery Method 05/01/25 05:45 05/01/25 06:00 05/01/25 06:00 Temperature Pulse Rate 140 H 71 Respiratory Rate 14 Blood Pressure 103/75 91/58 L Pulse Oximetry 95 Oxygen Delivery Method 05/01/25 06:30 05/01/25 06:30 05/01/25 07:00 Temperature Pulse Rate 77 79 Respiratory Rate 22 25 H Blood Pressure 105/70 Pulse Oximetry 96 97 Oxygen Delivery Method 05/01/25 07:01 05/01/25 07:01 05/01/25 07:30 Temperature Pulse Rate 78 81 Respiratory Rate 19 11 L Blood Pressure 131/72 Pulse Oximetry 94 98 Oxygen Delivery Method Room Air 05/01/25 07:30 05/01/25 08:00 05/01/25 08:00 Temperature Pulse Rate 82 Respiratory Rate 16 Blood Pressure 96/69 111/75 Pulse Oximetry 96 Oxygen Delivery Method 05/01/25 08:45 05/01/25 08:56 05/01/25 09:26 Temperature 96.9 F L Pulse Rate 70 70 125 H Respiratory Rate 15 Blood Pressure 116/89 116/89 Pulse Oximetry 99 Oxygen Delivery Method
[2025-05-01] MEDS: DIGOXIN 500 MCG/2 ML AMPUL 250 MCG IV (12:26)
--- NOTE | 2025-05-01 12:51 | EKG_ITS ---
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
--- NOTE | 2025-05-01 13:47 | PM.DS.1 ---
History of Present Illness History of Present Illness Chief complaint: Chest Pressure, palpitations Narrative: Per H&P: 85-year-old male with past medical history of A-fib currently only on aspirin, status post ablation, coronary disease status post 2 stents, dyslipidemia and hypertension presents with palpitation. Per the patient's report, the patient was ambulating at home when he started to have palpitation. The patient stated that he is compliant to taking his metoprolol at home. Previously the patient was on Eliquis but switched to Brilinta after he received 2 stents for coronary artery disease. The patient then was switched back to aspirin and has been off of Eliquis and Brilinta. The patient otherwise denies any fever, chills, nausea, vomiting, diarrhea, chest pain or shortness of breath. In the emergency room, the patient was hemodynamic stable the heart rate was in the 130s to 140 A-fib with RVR. The patient initially received 2 doses of metoprolol IV push which improved the heart rate to the 120s. Finally the patient was given a diltiazem IV push and heart rate dropped and improved to the 60s to 70. The patient remained hemodynamically stable per ER physician. Labs were relatively benign. TSH pending. Tropes were negative. Chest x-ray shows no acute pathology. 1 dose of Eliquis given. Discharge Providers Provider Date of admission: 05/01/25 06:27 Discharge Date: 05/01/25 Primary care physician: Dandy Palumbo MD Discharge provider: Isabel Baker MD Summary Hospital Course Discharge Diagnosis: 1. A fib w/RVR, s/p conversion back to NSR after IV digoxin x 1 dose 2. CAD 3. HTN 4. HLD Hospital Course: Pt presented to the ED after acute onset A fib w/RVR. He is s/p ablation last year. He had been taken off metoprolol and eliquis last year. He is also s/p 2 stents and has been on ASA for his CAD. He received IV metoprolol and dilt as well as po metoprolol IR and eliquis in the ED. On arrival to the floor he received po metoprolol ER. He continued in A fib w/RVR w/variable rates over the course of the am. By the early afternoon, his HR increased and sustained in the 130s-140s. He received a single dose of IV dogixin 0.25 mg. He converted to NSR a short time later and remained in NSR. He requested d/c home. He was continued on metoprolol ER, amlodipine was d/c'd to prevent hypotension. He was continued on eliquis d/t [id number] score of 4. Additionally, he will continue po dig x 30 days and f/u w/cardiology in that time for further recommendations. He is d/c'd in stable condition. Status at Discharge Cognitive/behavioral status at discharge: at baseline, oriented Functional status at discharge: independent ambulation Overall status at discharge: patient is back to baseline Time Spent with Patient Time spent: Greater than 30 minutes Exam Vital Signs (past 8 hours): - 05/01/25 06:00 05/01/25 06:00 05/01/25 06:30 Temperature Pulse Rate 71 77 Respiratory Rate 14 22 Blood Pressure 91/58 L Pulse Oximetry 95 96 Oxygen Delivery Method Oxygen Flow Rate 05/01/25 06:30 05/01/25 07:00 05/01/25 07:01 Temperature Pulse Rate 79 Respiratory Rate 25 H Blood Pressure 105/70 131/72 Pulse Oximetry 97 Oxygen Delivery Method Oxygen Flow Rate 05/01/25 07:01 05/01/25 07:30 05/01/25 07:30 Temperature Pulse Rate 78 81 Respiratory Rate 19 11 L Blood Pressure 96/69 Pulse Oximetry 94 98 Oxygen Delivery Method Room Air Oxygen Flow Rate 05/01/25 08:00 05/01/25 08:00 05/01/25 08:45 Temperature 96.9 F L Pulse Rate 82 70 Respiratory Rate 16 15 Blood Pressure 111/75 116/89 Pulse Oximetry 96 99 Oxygen Delivery Method Oxygen Flow Rate 05/01/25 08:45 05/01/25 08:56 05/01/25 09:26 Temperature Pulse Rate 70 125 H Respiratory Rate Blood Pressure 116/89 Pulse Oximetry Oxygen Delivery Method Room Air Oxygen Flow Rate 05/01/25 12:00 05/01/25 12:26 Temperature 98.4 F Pulse Rate 137 H 155 H Respiratory Rate 15 Blood Pressure 117/95 H 117/95 H Pulse Oximetry 97 Oxygen Delivery Method Oxygen Flow Rate 0 Oxygen Delivery Method Room Air Oxygen Flow Rate 0 Objective Labs 05/01/25 03:30 05/01/25 03:30 Labs: Laboratory Results - last 24 hr 05/01/25 05/01/25 03:30 05:30 WBC 8.1 RBC 4.88 Hgb 15.7 Hct 45.6 MCV 93.5 MCH 32.2 MCHC 34.5 RDW 14.3 Plt Count 185 Neut % (Auto) 46.1 L Lymph % (Auto) 36.6 [place] % (Auto) 10.7 Eos % (Auto) 5.3 H Baso % (Auto) 1.3 Neut # (Auto) 3700 Lymph # (Auto) 3000 [place] # (Auto) 900 Eos # (Auto) 400 Baso # (Auto) 100 PT 9.8 INR 0.9 APTT 30 Sodium 141 Potassium 3.8 Chloride 109 H Carbon Dioxide 23 BUN 23 H Creatinine 0.79 Estimated GFR > 60 BUN/Creatinine Ratio 29.1 H Glucose 101 H Calcium 9.8 Magnesium 1.8 Total Bilirubin 0.4 AST 42 ALT 29 Alkaline Phosphatase 101 Total Creatine Kinase 239 H Troponin I < 0.012 < 0.012 NT-Pro-B Natriuret Pep 144 Total Protein 7.8 Albumin 4.8 Globulin 3.0 Albumin/Globulin Ratio 1.6 Lipase 134 TSH 4.34 Free T4 0.89 [facility] Medical History (Updated 05/01/25 @ 06:20 by Domenic Langford, ) Fecal incontinence Diarrhea Anxiety IT band syndrome Coronary artery disease BPH w urinary obs/LUTS Polyneuropathy Generalized anxiety disorder History of colon polyps Mixed hyperlipidemia Essential hypertension Osteoarthritis (~2014) Bronchiectasis (~2020) Allergies (~1954) Restless leg syndrome (~1999) Chronic back pain (~2021) Chicken pox (~1946) Cataracts, bilateral (~2015) History of elevated PSA (~1977) GERD (gastroesophageal reflux disease) (~2016) Colon polyps (~2000) Atrial fibrillation (~2012) Chronic cough (~2011) Asthma (~2011) Surgical History Hx of heart artery stent (07/2023) Hx of eye surgery (2018) History of angioplasty (07/30/23) History of cardiac radiofrequency ablation (~06/07/23) Hx of hernia repair (02/13/95) Anesthesia History of thoracotomy (~1965) History of colonoscopy History of cataract surgery (~2017) History of partial knee replacement (~2016) History of hemorrhoidectomy (1984) History of appendectomy (~1959) History of tonsillectomy (~1947) Family History Father History of heart disease Cancer Hypertension Hyperlipidemia Mother Stroke Brother Lung cancer Prostate cancer Hyperlipidemia Hypertension Social History marital status: number of children: 1 household members: spouse Smoking Status: Former smoker alcohol intake: current caffeine: No Discharge Plan Discharge Plan Patient Disposition: Home Provider Discharge Comment: 1. You were admitted with paroxysmal (episodic) atrial fibrillation with rapid rate. You converted back to a normal sinus rhythm after getting IV digoxin. Your medications will be modified upon discharge. Please STOP amlodipine and START metoprolol ER. Please also START Eliquis and digoxin. 2. Make an appt to see your health data administrator for follow-up. 3. Monitor your stool - if black/tarry/maroon in color, go to ER. 4. Go to ER for any bleeding you cannot control. 5. Reduce your alcohol use to one beverage nightly. Return to ED: Any sustained heart rate above 130 Recurrent chest pain/pressure/palpitations/shortness of breath Discharge orders & Medications Prescriptions: New metoprolol succinate 25 mg Tablet Extended Release 24 Hr 25 mg PO BID Qty: 60 0RF digoxin 125 mcg (0.125 mg) tablet 125 mcg PO DAILY Qty: 30 0RF Continued fexofenadine 180 MG tablet 180 mg PO DAILY PRN (Reason: Allergic Symptoms) Qty: 0 sildenafil 25 mg tablet 100 mg PO .COMPLEX PRN (Reason: sexual activity) Qty: 50 6RF Rx Instructions: 1-4 tablets by mouth 30 minutes to 4 hours before sexual activity. This script replaces the previous script sent on 01/10/23. PRN; lorazepam [Ativan] 0.5 mg tablet 0.5 mg PO BEDTIME PRN (Reason: Insomnia) Qty: 90 1RF Rx Instructions: One tablet daily as needed. lisinopril 40 mg tablet 40 mg PO DAILY Qty: 90 3RF azelastine 137 mcg (0.1 %) spray,non-aerosol 1 spray intranasal BID Qty: 30 4RF Rx Instructions: administer into each nostril aspirin [Enteric Coated Aspirin] 81 mg tablet,delayed release (DR/EC) 81 mg PO DAILY Praluent Pen 75 mg/mL pen injector 75 mg SUBCUT Q2W Patient Comments: [NO ORIGINAL SIG] cholecalciferol (vitamin D3) 25 mcg (1,000 unit) capsule 25 mcg PO DAILY ascorbic acid (vitamin C) 1,000 mg tablet 1,000 mg PO DAILY multivitamin Tablet 1 tab PO DAILY Qty: 0 melatonin 5 mg Tablet 5 mg PO BEDTIME PRN (Reason: Insomnia) Qty: 0 oxybutynin chloride 5 mg tablet extended release 24hr 5 mg PO DAILY Qty: 90 0RF Discontinued amlodipine 10 mg tablet 10 mg PO DAILY amoxicillin 500 mg capsule 500 mg PO TID Qty: 30 1RF Follow up/Referrals: Dandy Palumbo MD [Primary Care Provider, Internal Medicine] Discharge Health Status Multidrug resistant organism: No MDRO Diet/Activity/Treatments Diet: Regular Activity: As tolerated Oxygen: N/A Visit Report/Discharge Packet Instructions: Atrial Fibrillation, Apixaban Stand Alone Forms: Patient Portal/API, Stroke Signs & Symptoms Discharge Data Primary Care Provider: Dandy Palumbo V Attending Provider: Domingo Mcgee Admit Date/Time: 05/01/25 06:27
--- NOTE | 2025-05-01 14:51 | PC.NURSE ---
Discharge: Pt heart rhythm converted to NSR, verified via EKG and provider notified. Pt ambulated in halls with this RN SBA, HR remained in SR 80's-90's, pt denied SOB, palpitations, fluttering in chest. Pt agreeable to discharge plan. Declining skin assessment at this time. IV d/c'd, telemetry removed. Pt dressed self. Pt and spouse provided with discharge instructions including medication changes, stroke s/s, follow up with cardiology as soon as pt can make an appt on Saturday as the office is closed today (saturday). Pt instructed on fall prevention and bleeding risks d/t new blood thinner prescription. Pt ambulated with spouse and this RN to a private vehicle at approximately 1435.
== END 2025-05-01 14:35 | disposition home or self-care (01) ==
LOC: ED 03:49 → AC 06:28
PROVIDERS: Family Medicine; Admitting Provider Internal Medicine; Emergency Provider Family Medicine; PCP Internal Medicine; Visit Provider Internal Medicine
DX: I48.91 Unspecified atrial fibrillation (principal); I25.10 Atherosclerotic heart disease of native coronary artery without angina pectoris; I10 Essential (primary) hypertension; E78.5 Hyperlipidemia, unspecified; Z95.818 Presence of other cardiac implants and grafts; Z79.82 Long term (current) use of aspirin; Z87.891 Personal history of nicotine dependence
CPT/HCPCS: 36415; 71045; 80053; 82550; 83690; 83735; 83880; 84439; 84443; 84484; 85025; 85610; 85730; 93005; 93306; 96374; 96375; 99284; G0378; J1160

== ENCOUNTER → 2025-08-11 09:01 | Outpatient (CLI) | payer MEDICARE, SELFPAY ==
[2025-05-01 08:00] VITALS: BMI 23.4
[2025-08-11 11:04] LABS: Prostate Specific Antigen 3.87 ng/mL (0.10-4.00)
== END ==
PROVIDERS: PCP Internal Medicine; Referring Provider Urology; Visit Provider Urology
DX: R97.20 Elevated prostate specific antigen [PSA] (principal)
CPT/HCPCS: 36415; 84153

== ENCOUNTER → 2025-08-26 16:18 | Outpatient (CLI) | payer MEDICARE, SELFPAY ==
[2025-05-01 08:00] VITALS: BMI 23.4
== END ==
LOC: LAB 16:19
PROVIDERS: PCP Internal Medicine; Visit Provider Internal Medicine
DX: J47.9 Bronchiectasis, uncomplicated (principal)
CPT/HCPCS: 87070; 87205